=== PATIENT | male | born 1985 | race Caucasian/White ===

== ENCOUNTER 2020-06-25 17:04 | Emergency (ER) | payer SELFPAY ==
[2020-06-25] MEDS ORDERED: HYDROmorphone 1 MG/ML Syringe IVPUSH ONE ×2 (17:50→19:34)
[2020-06-25] MEDS ORDERED: Metoclopramide 10 MG/2 ML SDV IVPUSH ONE (17:51)
[2020-06-25] MEDS ORDERED: Iopamidol 612 MG/ML 50 ML SDV IVPUSH ONE (17:53)
[2020-06-25] MEDS ORDERED: Iopamidol 612 MG/ML 100 ML Bottle IVPUSH ONE (17:53)
[2020-06-25] MEDS ORDERED: Sodium Chloride 0.9% 10 ML Syringe FLUSH ONE (17:53)
--- NOTE | 2020-06-25 17:57 | EDM.PDOC ---
ED HPI GENERAL MEDICAL PROBLEM - General Chief Complaint: Trauma Stated Complaint: BACK INJURY Time Seen by Provider: 06/25/20 17:45 Source of Information: Reports: Patient, RN Notes Reviewed History Limitations: Reports: No Limitations - History of Present Illness INITIAL COMMENTS - FREE TEXT/NARRATIVE: 34-year-old male presents to the ED reportedly having fallen in the workplace from a pole barn at 1300 hrs. today. He apparently fell between 25 and 30 feet to the ground landing primarily feet first and then falling onto his right side. He states he does not believe he hit his head. He has no headache or cervical neck pain at this time. He is alert oriented answers all questions appropriately. Pain is primarily in his thoracolumbar spine and left calcaneus. Patient appreciated that his urine seems to be very dark in color questionable hematuria. Patient states that he was able to ambulate around the job site a little bit after the fall but was unable to get back up on the roof and work. Condition gradually deteriorated with increased pain particular in the lower back. He presents to the ED hunched over at least 30 degrees flexion and is unable to stand fully erect due to pain in his back. Complains of some pain along the right rib cage. Denies headache. Mildly nauseated. Currently pain is 10 out of 10. Onset: Today, Sudden Onset Date: 06/25/20 Onset Time: 13:00 Duration: Hour(s):, Getting Worse (Crease low back pain left heel pain) Location: Reports: Back (Radical lumbar junction lumbar spine. He is unable to stand fully erect.), Lower Extremity, Left (Pain in his left heel.) Quality: Reports: Ache, Throbbing Severity: Severe (10) Improves with: Reports: Rest Worsens with: Reports: Movement Context: Reports: Trauma (Fall between 25 and 30 feet from a pole barn roof onto the ground. He landed feet first.). Denies: Activity, Exercise (Specially trying to walk or take off his pants. He remains flexed at about 30 degrees flexion and is unable to stand fully erect.), Lifting, Sick Contact Associated Symptoms: Reports: Chest Pain, Loss of Appetite, Malaise, Nausea/Vomiting, Shortness of Breath. 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.) Lower Back Pain Score (Numeric/FACES): 10 Left Ankle Pain Score (Numeric/FACES): 6 - Related Data Allergies Allergy/AdvReac Type Severity Reaction Status Date / Time No Known Allergies Allergy Verified 06/25/20 18:11 Home Meds: Home Meds oxyCODONE HCl [Roxicodone] 1 - 2 tab PO Q4H #30 tablet 06/25/20 [Rx] polyethylene glycoL 3350 [MiraLAX] 17 gm PO DAILY #14 packet 06/25/20 [Rx] Past Medical History Genitourinary History: Reports: Renal Calculus (Is a 2 bouts of renal colic.) Social & Family History - Living Situation & Occupation Occupation: Employed Review of Systems - Review of Systems Review Of Systems: See Below Constitutional: Denies: Chills, Diaphoresis, Fever Eyes: Reports: No Symptoms Ears: Reports: No Symptoms Nose: Reports: No Symptoms Mouth/Throat: Reports: No Symptoms Respiratory: Reports: Shortness of Breath (Increased pain right costal margin with deep breathing.). Denies: Wheezing, Pleuritic Chest Pain, Cough, Sputum Cardiovascular: Reports: Chest Pain (Right posterior lateral chest pain worsened by deep breathing.) GI/Abdominal: Reports: No Symptoms, Decreased Appetite. Denies: Abdominal Pain, Bloody Stool, Constipation, Diarrhea, Hematemesis, Nausea, Vomiting Genitourinary: Reports: Other (His fall. Appreciated dark-colored urine since his fall. Questionable hematuria.) Musculoskeletal: Reports: Other (And has had occasional low back pain) Skin: Reports: No Symptoms Neurological: Reports: No Symptoms Psychiatric: Reports: No Symptoms ED EXAM, GENERAL - Physical Exam Exam: See Below Exam Limited By: No Limitations General Appearance: Alert, WD/WN, Moderate Distress, Other (Temperature is 36.6. Heart rate 99 and sinus. Respiratory to 16 with O2 sats of 96% on room air BP 117/87 at the time of admission to the ED.) Eye Exam: Bilateral Eye: Normal Inspection, PERRL Throat/Mouth: Normal Inspection, Normal Lips, Normal Oropharynx, Other Head: Atraumatic, Normocephalic, Other Neck: Normal Inspection (Outward signs of head or facial trauma.), Supple, Non- Tender, Full Range of Motion. No: Carotid Bruit, Lymphadenopathy (L), Lymphadenopathy (R) Respiratory/Chest: No Respiratory Distress, Lungs Clear, Normal Breath Sounds, No Accessory Muscle Use, Other (Diffuse right-sided chest wall tenderness without crepitus or subcutaneous emphysema on palpation. Clinically has bruised ribs.) Cardiovascular: Normal Peripheral Pulses, Regular Rate, Rhythm, No Edema, No Gallop, No Murmur, No Rub Peripheral Pulses: 3+: Carotid (L), Carotid (R), Posterior Tibial (L), Posterior Tibial (R), Dorsalis Pedis (L), Dorsalis Pedis (R) GI/Abdominal: Soft, Non-Tender, No Organomegaly, No Abnormal Bruit, No Mass, Pelvis Stable, Abnormal Bowel Sounds (Decreased bowel sounds) Rectal (Males) Exam: Deferred Back Exam: CVA Tenderness (L), CVA Tenderness (R), Decreased Range of Motion, Vertebral Tenderness (Thoracolumbar spine.), Other (Patient is unable to stand fully erect. He arrives in the ED standing and is flexed at approximately 20 to 30 degrees. This is his position of comfort.) Extremities: Other (No evidence of any injuries to the femurs or hips. Tib- fib's are normal bilaterally to palpation. Right foot is normal to exam. Left foot has tenderness on palpation of the calcaneus and midfoot with slight swelling around the calcaneus appreciated. No bruising or ecchymosis at this time. He denies any injuries to his upper extremities hands wrist elbows or shoulders.) Neurological: Alert, Oriented, CN II-XII Intact, Normal Cognition, No Motor/Sensory Deficits, Other (Patient can stand at the bedside. Patient walked into the ED. He has no lower extremity numbness tingling or paresthesias.) Psychiatric: Other (Patient is a good deal of pain.) Skin Exam: Warm, Dry, Intact, Normal Color, No Rash Course - Vital Signs Last Recorded V/S: Last Vital Signs Temp 36.6 C 06/25/20 17:48 Pulse 93 06/25/20 17:48 Resp 16 06/25/20 17:48 BP 119/84 06/25/20 17:48 Pulse Ox 98 06/25/20 17:48 - Orders/Labs/Meds Orders: Active Orders 24 hr Category Date Time Status Calcaneous Lt [CR] Stat Exams 06/25/20 17:51 Taken Cervical Spine wo Cont [CT] Stat Exams 06/25/20 17:55 Taken Chest Abdomen Pelvis w Cont [CT] Stat Exams 06/25/20 17:53 Taken Foot wo Cont Lt [CT] Stat Exams 06/25/20 18:08 Taken Head wo Cont [CT] Stat Exams 06/25/20 17:52 Taken Lumbar Spine wo Cont [CT] Stat Exams 06/25/20 17:55 Taken Thoracic Spine wo Cont [CT] Stat Exams 06/25/20 17:55 Taken TYPE AND SCREEN [BBK] Stat Lab 06/25/20 17:46 Received URINALYSIS W/MICROSCOPIC [UA W/MICROSCOPIC] [URIN] Stat Lab 06/25/20 17:51 Ordered Sodium Chloride 0.9% [Normal Saline] 1,000 ml Med 06/25/20 18:00 Active IV ASDIRECTED Durable Medical Equipment for Discharge [[facility] [place] 06/25/20 19:34 Ordered Discharge] [COMM] Stat Medication Orders Sodium Chloride (Normal Saline) 1,000 mls @ 150 mls/hr IV ASDIRECTED TD Last Admin: 06/25/20 18:11 Dose: 150 mls/hr Documented by: PALAK Labs: Laboratory Tests 06/25/20 06/25/20 Range/Units 17:46 17:46 WBC 8.86 (4.23-9.07) K/mm3 RBC 4.71 (4.63-6.08) M/mm3 Hgb 14.1 (13.7-17.5) gm/dl Hct 42.0 (40.1-51.0) % MCV 89.2 (79.0-92.2) fl MCH 29.9 (25.7-32.2) pg MCHC 33.6 (32.2-35.5) g/dl RDW Std Deviation 42.4 (35.1-43.9) fL Plt Count 386 H (163-337) K/mm3 MPV 9.9 (9.4-12.3) fl Neut % (Auto) 72.1 H (34.0-67.9) % Lymph % (Auto) 20.1 L (21.8-53.1) % [place] % (Auto) 5.3 (5.3-12.2) % Eos % (Auto) 2.1 (0.8-7.0) Baso % (Auto) 0.2 (0.1-1.2) % Neut # (Auto) 6.38 H (1.78-5.38) K/mm3 Lymph # (Auto) 1.78 (1.32-3.57) K/mm3 [place] # (Auto) 0.47 (0.30-0.82) K/mm3 Eos # (Auto) 0.19 (0.04-0.54) K/mm3 Baso # (Auto) 0.02 (0.01-0.08) K/mm3 Sodium 140 (136-145) mEq/L Potassium 4.3 (3.5-5.1) mEq/L Chloride 104 (98-107) mEq/L Carbon Dioxide 26 (21-32) mEq/L Anion Gap 14.3 (5-15) BUN 22 H (7-18) mg/dL Creatinine 1.0 (0.7-1.3) mg/dL Est Cr Clr Drug Dosing 99.75 mL/min Estimated GFR (MDRD) > 60 (>60) mL/min BUN/Creatinine Ratio 22.0 H (14-18) Glucose 109 H (74-106) mg/dL Calcium 8.9 (8.5-10.1) mg/dL Total Bilirubin 0.4 (0.2-1.0) mg/dL AST 30 (15-37) U/L ALT 46 (16-63) U/L Alkaline Phosphatase 72 (46-116) U/L Total Protein 7.8 (6.4-8.2) g/dl Albumin 4.1 (3.4-5.0) g/dl Globulin 3.7 gm/dL Albumin/Globulin Ratio 1.1 (1-2) Meds: Medications Generic Name Dose Route Start Last Admin Trade Name Freq PRN Reason Stop Dose Admin Sodium Chloride 1,000 mls @ 150 mls/hr 06/25/20 18:00 06/25/20 18:11 Normal Saline IV 150 mls/hr ASDIRECTED TD Administration Discontinued Medications Generic Name Dose Route Start Last Admin Trade Name Freq PRN Reason Stop Dose Admin Hydromorphone HCl 1 mg 10/02/20 17:50 06/25/20 18:11 Dilaudid IVPUSH 06/25/20 17:51 1 mg ONETIME ONE Administration Hydromorphone HCl 1 mg 06/25/20 19:34 06/25/20 19:40 Dilaudid IVPUSH 06/25/20 19:35 1 mg ONETIME ONE Administration Iopamidol 100 ml 06/25/20 17:53 Isovue-300 (61%) IVPUSH 06/25/20 17:54 ONETIME ONE Iopamidol 50 ml 06/25/20 17:53 Isovue-300 (61%) IVPUSH 06/25/20 17:54 ONETIME ONE Metoclopramide HCl 10 mg 06/25/20 17:51 06/25/20 18:11 Reglan IVPUSH 06/25/20 17:52 10 mg ONETIME ONE Administration Sodium Chloride 10 ml 06/25/20 17:53 Saline Flush FLUSH 06/25/20 17:54 ONETIME ONE - Radiology Interpretation Free Text/Narrative:: 34-year-old male presents to the ED for evaluation of trauma secondary to a fall from a pole barn 25 to 30 feet to the ground at approximately 1300 hrs. today. Of note this is approximate 5 hours prior to arrival in the ED. Chief complaint is diffuse pain primarily at the thoracolumbar junction in his back and left foot/calcaneus. Patient reports he thinks he landed feet first and then toppled over to his right side. He definitely had the wind knocked out of him. He does not believe he hurt his head or neck and this is confirmed on examination with no suspicion of closed head injury or cervical spine injury. He is hunched over with 20 to 30 degrees of flexion due to severe pain in the thoracolumbar junction if he tries to stand fully erect. Highly suspect that he is suffered a compression fracture or more to his thoracolumbar spine. There is swelling left midfoot and calcaneus. Plain films of his calcaneus will be obtained. IV to be normal saline at 150 mils per hour. Routine labs obtained. Patient will be given Dilaudid 1 mg IV with Reglan 10 mg IV for acute pain and nausea relief. - Re-Assessments/Exams Free Text/Narrative Re-Assessment/Exam: 06/25/20 18:13 Plain films of the left calcaneus do not reveal any calcaneal fractures. There is a suspect fracture within the midfoot bone particularly the medial cuneiform bone. CT of the Lt foot will be obtained. 06/25/20 18:35 White blood cell count is 8.86. Differential is 72% neutrophils. Hemoglobin 14.1 with hematocrit of 42.0. Platelet count 386,000 slightly elevated. Sodium 140 with potassium of 4.3. Chloride is 104 the bicarb 26. Anion gap is 14.3 BUN is 22 with a creatinine of 1.0. GFR is greater than 60. Glucose slightly elevated at 109. Calcium 8.9 liver function normal total protein 7.8 with an albumin fraction of 4.1. 06/25/20 19:20 CT of the head is reported to be normal. There is no intracranial hemorrhage or mass-effect. There is no skull fractures. No soft tissue evidence of closed head injury. CT cervical spine reveals no fractures. There is normal alignment. No significant disc protrusion. No severe spinal canal stenosis. No significant neuroforaminal narrowing. CT of the chest reveals normal lung dowling with mild bibasilar ectasis. There is no pneumothora x no pulmonary contusion. Great vessels and heart appear to be normal. CT of the abdomen pelvis reveals normal-appearing liver. Gallbladder is distended without any calcified gallstones. Pancreas normal. Spleen normal. Stomach appears normal. The colon contains a fair amount of stool particular right hemicolon and transverse colon at the hepatic flexure. Small bowel appears normal with no signs of bowel obstruction. Both kidneys filled appropriately with contrast. This showed no extravasation of contrast. Ureters feel adequately down to the urinary bladder which also fills normally with contrast on the delayed films. There is no free fluid in the pelvis. CT of the thoracic spine reveals normal alignment without compression fracture or deformities. CT lumbar spine reveals no acute fracture with normal alignment no. No disc protrusion identified no severe spinal canal stenosis no significant neuroforaminal narrowing. He has lost his normal lumbar lordotic curvature presumably due to muscle spasm. CT of the left foot does not reveal any fractures within the foot bones including the calcaneus and the first cuneiform born. Patient is left suffered multiple contusions from his fall today but suffered no bony fractures. 06/25/20 19:35 Patient advised of the findings on CT with no bony fractures. No doubt he is strained all the ligaments in his mid and lower back and sprained his left ankle. There is increased swelling on the lateral aspect of the left ankle at this time. Medial ligaments are intact and normal. Again review of the left tib-fib reveals no clinical evidence of bony fracture. Mauricio wrap applied to the left foot and ankle. He will be nonweightbearing with crutches for the next few days. Due to increased pain will repeat his Dilaudid 1 mg IV. He will be discharged on Roxicodone 5 mg 1 or 2 every 4-6 hours necessary for pain relief x30 tablets. He is advised that he will have increased mid lower back pain and likely cervical neck pain over the next 2 to 3 days. He is to elevate his left foot as much as possible ice pack to the area 1/2-hour out of every 4 hours. He is not going to claim this injury under work-related injury. 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 CT does reveal increased stool throughout the right hemicolon and transverse colon. Patient will be advised to purchase MiraLAX powder and take 17 g once daily to prevent constipation from the Roxicodone tablets. Departure - Departure Time of Disposition: 19:40 Disposition: Home, Self-Care 01 Condition: Fair Clinical Impression: Injury resulting from fall from height, Strain of thoracic spine, Sprain and strain of left ankle Lumbar spine strain Qualifiers: Encounter type: initial encounter Qualified Code(s): S39.012A - Strain of muscle, fascia and tendon of lower back, initial encounter - Discharge Information *PRESCRIPTION DRUG MONITORING PROGRAM REVIEWED*: Not Applicable *COPY OF PRESCRIPTION DRUG MONITORING REPORT IN PATIENT ELE: Not Applicable Prescriptions: polyethylene glycoL 3350 [MiraLAX] 17 gm PO DAILY #14 packet oxyCODONE HCl [Roxicodone] 1 - 2 tab PO Q4H #30 tablet Instructions: Ankle Sprain, Phase I Rehab-SportsMed, Ankle Sprain, [id number], Lumbosacral Strain Referrals: PCP,None [Primary Care Provider] - Forms: ED Department Discharge Additional Instructions: Evaluation in the emergency room tonight after a fall from height of 25 to 30 feet from a pole barn at 1300 hrs. today. It appears that you landed feet first with primary injury to the left foot and ankle. CT of the foot and ankle does not reveal any fractures of the bony structures of the left ankle. There is swelling of the lateral ankle ligament suggesting sprain of the lateral ankle ligaments. Mauricio wrap applied in the ED. Suggest nonweightbearing crutch walking for the next 3 to 6 days. May discontinue crutches when sure able to weight- bear without significant pain. Suggest Mauricio wrap on during the day and off at night but you could leave it on all night tonight. Elevate the left foot as much as possible and apply ice pack to the left lateral ankle for 1/2 part of every 4 hours to reduce pain and swelling over the next 2 days. Second injuries to the lower back called the thoracolumbar spine. CT of the spine does not reveal any fractures in your neck mid back or lower back. You will have increased spasm and muscle pain due to ligament and muscle strain from fall from a height without bony injury. Expect to be much worse over the next 24 to 48 hours and then gradually improve over the next [address] of your chest abdomen pelvis was negative for any broken ribs or injury to the underlying lung or heart. Similarly was no injuries to the internal organs in your abdomen including your kidneys liver and spleen. There is increased stool in the right hemicolon and transverse colon combined with mild constipation. Therefore with use of pain pills for back pain I Roxicodone 5 mg strength 1 or 2 tablets every 4-6 hours necessary for pain relief. These pain pills like to slow the bottom cause constipation. Suggest use of MiraLAX powder 17 g or 1 scoop daily to prevent constipation from occurring until off the pain pills. Likely going to miss the next week to 10 days of work. May continue to use Motrin 60 mg every 6-8 hours as necessary for inflammation and pain relief. Up with personal care physician or walk-in clinic if not markedly improved in 7 to 10 days. Sepsis Event Note (ED) - Evaluation Sepsis Screening Result: No Definite Risk - Focused Exam Vital Signs: Vital Signs Temp Pulse Resp BP Pulse Ox 06/25/20 17:48 36.6 C 93 16 119/84 98 06/25/20 17:41 36.6 C 99 16 117/87 96 - My Orders Last 24 Hours: My Active Orders 06/25/20 17:46 TYPE AND SCREEN [BBK] Stat 06/25/20 17:51 Calcaneous Lt [CR] Stat URINALYSIS W/MICROSCOPIC [UA W/MICROSCOPIC] [URIN] Stat 06/25/20 17:52 Head wo Cont [CT] Stat 06/25/20 17:53 Chest Abdomen Pelvis w Cont [CT] Stat 06/25/20 17:55 Cervical Spine wo Cont [CT] Stat Lumbar Spine wo Cont [CT] Stat Thoracic Spine wo Cont [CT] Stat 06/25/20 18:00 Sodium Chloride 0.9% [Normal Saline] 1,000 ml IV ASDIRECTED 06/25/20 18:08 Foot wo Cont Lt [CT] Stat 06/25/20 19:34 Durable Medical Equipment for Discharge [DME for Discharge] [COMM] Stat - Assessment/Plan Last 24 Hours: My Active Orders 06/25/20 17:46 TYPE AND SCREEN [BBK] Stat 06/25/20 17:51 Calcaneous Lt [CR] Stat URINALYSIS W/MICROSCOPIC [UA W/MICROSCOPIC] [URIN] Stat 06/25/20 17:52 Head wo Cont [CT] Stat 06/25/20 17:53 Chest Abdomen Pelvis w Cont [CT] Stat 06/25/20 17:55 Cervical Spine wo Cont [CT] Stat Lumbar Spine wo Cont [CT] Stat Thoracic Spine wo Cont [CT] Stat 06/25/20 18:00 Sodium Chloride 0.9% [Normal Saline] 1,000 ml IV ASDIRECTED 06/25/20 18:08 Foot wo Cont Lt [CT] Stat 06/25/20 19:34 Durable Medical Equipment for Discharge [DME for Discharge] [COMM] Stat
[2020-06-25] MEDS ORDERED: Sodium Chloride 0.9% 1,000 ML IV SCH (18:00)
== END 2020-06-25 20:09 | disposition home or self-care (01) ==
LOC: JD.ED 17:04
DX: S39.012A Strain of muscle, fascia and tendon of lower back, initial encounter (principal); S29.012A Strain of muscle and tendon of back wall of thorax, initial encounter; S96.912A Strain of unspecified muscle and tendon at ankle and foot level, left foot, initial encounter; S93.402A Sprain of unspecified ligament of left ankle, initial encounter; W17.89XA Other fall from one level to another, initial encounter; Y92.89 Other specified places as the place of occurrence of the external cause; Y99.0 Civilian activity done for income or pay
CPT/HCPCS: 36415; 70450; 71260; 72125; 72128; 72131; 73650; 73700; 74177; 80053; 85025; 86850; 86900; 86901; 96361; 96374; 96375; 96376; 99284; J1170; J2765; J7030

== ENCOUNTER 2020-06-28 11:08 | Emergency (ER) | payer SELFPAY ==
[2020-06-28] MEDS ORDERED: HYDROmorphone 1 MG/ML Syringe IM ONE (11:44)
[2020-06-28] MEDS ORDERED: Orphenadrine 100 MG Tab.ER PO ONE (11:47)
--- NOTE | 2020-06-28 11:59 | EDM.PDOC ---
ED HPI GENERAL MEDICAL PROBLEM - General Chief Complaint: Back Pain or Injury Stated Complaint: BACK PAIN Time Seen by Provider: 06/28/20 11:26 Source of Information: Reports: Patient, Old Records, RN Notes Reviewed History Limitations: Reports: No Limitations - History of Present Illness INITIAL COMMENTS - FREE TEXT/NARRATIVE: Patient is a 34-year-old male who presents to the ED for evaluation of his ongoing back pain. Patient was seen here on June 25 for trauma, he ended up falling off of a bar and that was about 25 or 30 feet off the ground, he landed feet first. He was evaluated by Dr. Pitt, and had multiple CTs done, all of which demonstrated no acute fractures or abnormalities, patient was sent home with some pain medications and MiraLAX and told to follow-up in the clinic if having any further issues, he states he tried to call the clinic and go to the clinic today as he was having increased pain, and he did take all of his medications due to the pain management, so he is subsequently out of pain meds. He was given a 30 count of 5 mg oxycodone tablets. He states that he had to take 2 every 2 hours to achieve adequate pain control along with 3 or 4 tablets of ibuprofen. He states that he is still having generalized pain all over, but he has not had any further traumatic injuries. He states that his is currently out of town, attending their young child in the NICU. So he is been forced to have to do a little bit more work around the house then he should be doing with the amount of pain he is in. He states there is a constant pain, but it does seems to worsen with movement, he states even getting up and off of the toilet is quite a chore. He last took his pain medications roughly 4 hours ago. He is not having any fevers or chills, cough or shortness of breath, nausea/vomiting/diarrhea. He states he is also taking the MiraLAX as prescribed, does not feel constipated. Lower Back Pain Score (Numeric/FACES): 10 - Related Data Allergies Allergy/AdvReac Type Severity Reaction Status Date / Time No Known Allergies Allergy Verified 06/25/20 18:11 Home Meds: Home Meds Naproxen [Naprosyn] 500 mg PO Q12HR #14 tab 06/28/20 [Rx] Orphenadrine [Norflex] 100 mg PO BID PRN #20 tab 06/28/20 [Rx] oxyCODONE HCl [Oxycodone HCL] 1 tab PO Q6H #30 tablet 06/28/20 [Rx] polyethylene glycoL 3350 [Miralax] 17 gram PO DAILY 06/28/20 [History] Past Medical History Genitourinary History: Reports: Renal Calculus - Past Surgical History Male Surgical History: Reports: Kidney Stone Extraction, Renal Calculus Social & Family History - Living Situation & Occupation Occupation: Employed ED ROS GENERAL - Review of Systems Review Of Systems: Comprehensive ROS is negative, except as noted in HPI. ED EXAM,LOWER BACK PAIN/INJURY - Physical Exam Exam: See Below Exam Limited By: No Limitations General Appearance: Alert, WD/WN, No Apparent Distress Respiratory/Chest: No Respiratory Distress, Lungs Clear, Normal Breath Sounds, No Accessory Muscle Use, Chest Non-Tender Cardiovascular: Normal Peripheral Pulses, Regular Rate, Rhythm, No Murmur GI/Abdominal: Normal Bowel Sounds, Soft, Non-Tender, No Distention, No Mass Back Exam: Normal Inspection, Muscle Spasm (diffuse throughout spine) Extremities: Normal Inspection, Normal Capillary Refill Neurological: Alert, Normal Mood/Affect, Normal Dorsiflexion, Normal Plantar Flexion, No Motor/Sensory Deficits Psychiatric: Normal Affect, Normal Mood Skin Exam: Warm, Dry, Intact, Normal Color, No Rash Course - Vital Signs Last Recorded V/S: Last Vital Signs Temp 97.6 F 06/28/20 11:27 Pulse 64 06/28/20 11:27 Resp 20 06/28/20 11:27 BP 141/87 H 06/28/20 11:27 Pulse Ox 99 06/28/20 11:27 - Orders/Labs/Meds Meds: Medications Discontinued Medications Generic Name Dose Route Start Last Admin Trade Name Freq PRN Reason Stop Dose Admin Hydromorphone HCl 1 mg 06/28/20 11:44 06/28/20 11:53 Dilaudid IM 06/28/20 11:45 1 mg ONETIME ONE Administration Orphenadrine Citrate 100 mg 06/28/20 11:47 06/28/20 11:53 Norflex PO 06/28/20 11:48 100 mg ONETIME ONE Administration - Re-Assessments/Exams Free Text/Narrative Re-Assessment/Exam: 06/28/20 11:59 Patient presents to the ED for ongoing back pain. We will give him 1 mg IM Dilaudid at this time for pain management, and 100 mg p.o. Norflex, plan is to send him home with Naprosyn tablets, Norflex tablets, and 10 mg oxycodone tablets for further pain relief. I told him he is likely going to feel stiff and sore for the next couple days, and he realizes this at this time. 06/28/20 12:37 Patient notes he is feeling better, and is ready to go home at this time. I will discharge home with the above plan. Departure - Departure Time of Disposition: 12:38 Disposition: Home, Self-Care 01 Condition: Good Clinical Impression: Muscle spasm of back Low back pain Qualifiers: Chronicity: acute Back pain laterality: bilateral Sciatica presence: without sciatica Qualified Code(s): M54.5 - Low back pain - Discharge Information *PRESCRIPTION DRUG MONITORING PROGRAM REVIEWED*: Yes *COPY OF PRESCRIPTION DRUG MONITORING REPORT IN PATIENT ELE: No Prescriptions: Naproxen [Naprosyn] 500 mg PO Q12HR #14 tab Orphenadrine [Norflex] 100 mg PO BID PRN #20 tab PRN Reason: Spasms oxyCODONE HCl [Oxycodone HCL] 1 tab PO Q6H #30 tablet Instructions: Pain Medicine Instructions, [id number] Forms: ED Department Discharge Additional Instructions: You have been evaluated in the ED for your low back pain. Please use iceheat as tolerated to the affected area. You may take Tylenol (acetaminophen) 500 mg q6 hrs for pain relief. Please do so until you have a tolerable level of pain with activity. Do not exceed 4000mg Tylenol (acetaminophen) in a 24 hour time period. You were given a prescription for a strong pain medication, Oxycodone 10 mg, please take 1 tab every 6 hours as needed for pain not relieved by Tylenol or ibuprofen alone. Please note this medication does contain Tylenol in it, so do not take more than 4000 mg in a 24-hour time span. These medications can be addictive, so please take as few as possible to achieve adequate pain control. These meds can also be quite constipating, recommend that you increase your oral fluid intake and take a stool softener like MiraLAX while taking these medications. Do not drive while taking this medication. You were given a prescription for Naprosyn, 500 mg, please take 1 tablet every 12 hours for further pain relief. You were also given a prescription for Norflex, a muscle relaxer, please use 1 tab every 12 hours as needed for further pain relief. Please return to ED if your symptoms should change or worsen. Sepsis Event Note (ED) - Evaluation Sepsis Screening Result: No Definite Risk - Focused Exam Vital Signs: Vital Signs Temp Pulse Resp BP Pulse Ox 06/28/20 11:27 97.6 F 64 20 141/87 H 99
== END 2020-06-28 13:20 | disposition home or self-care (01) ==
LOC: SUPCPDRO 11:08 → JD.ED 11:08
DX: M62.830 Muscle spasm of back (principal)
CPT/HCPCS: 96372; 99283; A9270; J1170

== ENCOUNTER 2020-07-16 00:04 | Emergency (ER) | payer SELFPAY ==
--- NOTE | 2020-07-16 00:13 | EDM.PDOC ---
ED HPI GENERAL MEDICAL PROBLEM - General Chief Complaint: Trauma Stated Complaint: FELL OFF STEPS INJURING BACK/HEAD/RIBS Time Seen by Provider: 07/16/20 00:12 Source of Information: Reports: Patient History Limitations: Reports: No Limitations - History of Present Illness INITIAL COMMENTS - FREE TEXT/NARRATIVE: 34-year-old male reports to the ED per private vehicle from his home in [facility]. History suggest that he was out walking his dogs and upon returning home slipped on the icy top landing of his stairs outside his home. He fell to the side and backwards striking his posterior lateral right ribs on a metal railing and then fall to the concrete landing striking the back of his head and neck on the upper stair in mid back and lower back on the lower stairs. Injury did not the wind out of him. He does not believe he lost consciousness. Most of his pain at present in his left posterior lateral ribs and upper neck and back. Of note this patient was seen on June 25 of this month after reportedly falling 25 to 30 feet from the roof of a pole barn landing on his feet and was seen through the ED at that time 5 hours post injury. He did have CTs of his cervical, thoracic, lumbar spine at that time as well as CT of his left foot and ankle to rule out a calcaneal fracture. No fractures were identified within the spine at that time. Patient states that he has been able to weight-bear on the left foot over the last week. Still has significant low back pain and mid back pain. He had a friend bring him into the ER [facility] for evaluation Onset Date: 07/15/20 Onset Time: 22:30 Duration: Hour(s):, Getting Worse (Injury occurred approximately 2 hours before arrival in the ED.) Location: Reports: Chest (Cervical, thoracic and lumbar spine pain. Right posterior lateral chest pain with inspiration.), Back. Denies: Upper Extremity, Left, Upper Extremity, Right, Lower Extremity, Left, Lower Extremity, Right Quality: Reports: Ache, Other (Pain is sharp and stabbing left posterior lateral ribs with inspiration) Severity: Moderate (Noted 10) Improves with: Reports: Rest (And shallow breathing.) Worsens with: Reports: Movement Context: Reports: Trauma (Reportedly slipped and fell on icy concrete stairs at home and done [facility]. He was out walking his dogs.). Denies: Activity (And/or deep breathing or cough.), Exercise, Lifting, Sick Contact Associated Symptoms: Reports: Chest Pain (Right posterior lateral chest pain), Malaise, Shortness of Breath. Denies: Confusion, Cough ( with inspiration.), cough w sputum, Diaphoresis, Fever/Chills, Headaches, Loss of Appetite, Nausea/Vomiting, Rash, Seizure, Syncope Treatments [employer] MEMBER: Reports: Other (see below) (None.) Back Pain Score (Numeric/FACES): 9 - Related Data Allergies Allergy/AdvReac Type Severity Reaction Status Date / Time No Known Allergies Allergy Verified 07/16/20 00:21 Home Meds: Home Meds Naproxen [Naprosyn] 500 mg PO Q12HR #14 tab 06/28/20 [Rx] Orphenadrine [Norflex] 100 mg PO BID PRN #20 tab 06/28/20 [Rx] oxyCODONE HCl [Oxycodone HCL] 1 tab PO Q6H #30 tablet 06/28/20 [Rx] polyethylene glycoL 3350 [Miralax] 17 gram PO DAILY 06/28/20 [History] Naproxen Sodium 550 mg PO Q12H #30 tablet 07/16/20 [Rx] oxyCODONE HCl [Roxicodone] 5 mg PO Q4H PRN #36 tablet 07/16/20 [Rx] Past Medical History - Past Health History Medical/Surgical History: Denies Medical/Surgical History Genitourinary History: Reports: Renal Calculus - Past Surgical History Male Surgical History: Reports: Kidney Stone Extraction, Renal Calculus Social & Family History - Caffeine Use Caffeine Use: Reports: None - Living Situation & Occupation Occupation: Employed Review of Systems - Review of Systems Review Of Systems: See Below Constitutional: Denies: Chills, Diaphoresis, Fever, Weakness, Other Eyes: Reports: No Symptoms Ears: Reports: No Symptoms Nose: Reports: No Symptoms Mouth/Throat: Reports: No Symptoms Respiratory: Reports: Shortness of Breath, Pleuritic Chest Pain (Right posterior lateral chest wall pain with inspiration.). Denies: Wheezing, Cough, Sputum, Hemoptysis Cardiovascular: Reports: No Symptoms GI/Abdominal: Reports: No Symptoms Genitourinary: Reports: No Symptoms Musculoskeletal: Reports: Neck Pain, Back Pain (Pre-existing injury from 3 weeks ago when he fell from a pole barn and landed on his feet. No fractures were identified on CT scans of the neck thoracic or lumbar spine at that time.), Other (Still has some pain in his right ankle with walking.) Skin: Reports: No Symptoms Neurological: Reports: No Symptoms Psychiatric: Reports: No Symptoms ED EXAM, GENERAL - Physical Exam Exam: See Below Exam Limited By: No Limitations General Appearance: Alert, WD/WN, Moderate Distress, Other (Splinting respirations. Temperature is 36.2. Heart rate is 84 and sinus respiratory 16 sats are 95% room air BP 152/78.) Eye Exam: Bilateral Eye: Normal Inspection, PERRL Ears: Normal External Exam Throat/Mouth: Normal Inspection, Normal Lips, Normal Oropharynx, Other (No injuries to the tongue or dentition.) Head: Other (Appears to have some pain and swelling right occipital scalp on examination. Hematoma appears evident. No open wounds or bleeding.) Neck: Normal Inspection, Tender Lateral, Tender Midline (Line particularly at the base of the skull with no offset of any of the cervical spine is.). No: Supple, Lymphadenopathy (L), Lymphadenopathy (R), Thyromegaly Respiratory/Chest: Lungs Clear, Normal Breath Sounds, No Accessory Muscle Use, Splinting (Mild splinting respirations on the right side.), Other (No palpable crepitus or subcutaneous emphysema on palpation of ribs. Pain to palpation over posterior lateral right ribs 6-9.). No: Rales, Rhonchi, Wheezing Cardiovascular: Normal Peripheral Pulses, Regular Rate, Rhythm, No Edema, No Gallop, No Murmur, No Rub Peripheral Pulses: 3+: Carotid (L), Carotid (R) GI/Abdominal: Normal Bowel Sounds, Soft, Non-Tender, No Organomegaly, No Mass, Pelvis Stable, Other (No evidence of any intra-abdominal injury. No injury to the pelvis.) Back Exam: Vertebral Tenderness (Headedness to palpation mid thoracic spine as well as mid and upper lumbar spine with normal alignment of the spinous processes. No abrasions contusions appreciated on the thoracic or lumbar spine.). No: CVA Tenderness (L), CVA Tenderness (R) Extremities: Other (No apparent injuries to his elbows or wrists on examination. He is able to lift both arms above his head. Still has some pain on firm compression of his right ankle ligaments but no palpable evidence clinically of injury to the knees ankles feet or hips.) Neurological: Alert, Oriented, CN II-XII Intact, Normal Cognition Psychiatric: Anxious, Other Skin Exam: Warm (Appears to be in a moderate degree of pain.), Dry, Intact, Normal Color, No Rash Course - Vital Signs Last Recorded V/S: Last Vital Signs Temp 36.2 C 07/16/20 00:22 Pulse 74 07/16/20 00:22 Resp 16 07/16/20 00:22 BP 136/78 07/16/20 00:22 Pulse Ox 95 07/16/20 00:22 - Orders/Labs/Meds Orders: Active Orders 24 hr Category Date Time Status Cervical Spine wo Cont [CT] Stat Exams 07/16/20 00:37 Taken Chest wo Cont [CT] Stat Exams 07/16/20 00:38 Taken Head wo Cont [CT] Stat Exams 07/16/20 00:36 Taken Lumbar Spine wo Cont [CT] Stat Exams 07/16/20 00:37 Taken Thoracic Spine wo Cont [CT] Stat Exams 07/16/20 00:37 Taken Peripheral IV Insertion Adult [OM.PC] Stat Oth 07/16/20 00:35 Ordered Meds: Medications Discontinued Medications Generic Name Dose Route Start Last Admin Trade Name Robinson PRN Reason Stop Dose Admin Hydromorphone HCl 1 mg 07/16/20 00:35 07/16/20 00:44 Dilaudid IVPUSH 07/16/20 00:36 1 mg ONETIME ONE Administration Hydromorphone HCl 1 mg 07/16/20 01:47 07/16/20 01:53 Dilaudid IVPUSH 07/16/20 01:48 1 mg ONETIME ONE Administration Metoclopramide HCl 10 mg 07/16/20 00:35 07/16/20 00:44 Reglan IVPUSH 07/16/20 00:36 10 mg ONETIME ONE Administration Sodium Chloride 10 ml 07/16/20 00:35 07/16/20 00:44 Saline Flush FLUSH 10 ml ASDIRECTED PRN Administration Keep Vein Open - Radiology Interpretation Free Text/Narrative:: 34-year-old male presents to the ED per private vehicle from his home in [facility]. Reportedly he was out walking his dogs and upon reentering his home slipped on icy concrete stairs entering his home resulting in a fall. He states that he struck the back of his head and neck on the upper stair his mid and lower back on the mid concrete stairs. Struck his right posterior lateral chest on a metal handrail on the stairway. No loss of consciousness. He is able to provide a very useful history. Injury occurred approximately 2 hours before coming to the ED. Pain on palpation of thoracic and lumbar spine in the midline. He complains of pain at the base of his skull in the cervical spine. Minimal hematoma right occipital scalp. No open wounds or abrasions or lacerations. Pain on palpation of posterior lateral right ribs 6-9 without subcutaneous emphysema or palpable crepitus. Also no abrasions or contusions to the skin but he states he was well dressed of course due to the snowy conditions outside.. New injuries to his lower extremities or hips. Plan saline lock. Dilaudid 1 mg IV with Reglan 10 mg IV for acute pain relief. He will be for CT head, cervical, thoracic, lumbar spine as well as chest. - Re-Assessments/Exams Free Text/Narrative Re-Assessment/Exam: 07/16/20 01:38 CT scan of the head and brain has been completed without contrast. He has no intracranial hemorrhage or mass-effect. There are no skull fractures. There is evidence of a hematoma will right occipital scalp with there is surrounding swelling. CT of the cervical spine reveals no fractures. He has lost his normal which are of the cervical spine. No malalignment appreciated. CT of the thoracic spine also reveals no compression fractures or fractures of the spinous processes. There is mild degenerative changes throughout the mid thoracic spine. Facet joints are in anatomic alignment. There is no significant thoracic spine discs. CT lumbar spine also with without fracture or displacement of any of the transverse processes. There is a small broad-based disc bulges at the L3-L4 level resulting in mild bilateral neuroforaminal narrowing. No severe spinal canal stenosis appreciated. Similarly at the L4-L5 level there is a small broad-based disc bulge present resulting in mild bilateral neuroforaminal narrowing as well. CT of the chest revealed no pulmonary contusions pneumothorax or pleural effusions. No rib fractures were identified or subcutaneous air. Visualized portions of the upper abdominal organs i.e. liver spleen and kidneys are normal. Patient appears to have suffered multiple contusions from fall on concrete stairs with significant hematoma of the left occipital scalp. Possible concussion as well. Patient still having a good deal of pain particular in his mid and lower back. Repeat Dilaudid 1 mg IV at this time 07/16/20 01:56 patient will be discharged home. Ice pack to sore areas for 1/2- hour out of every 4 hours for the next 2 days. Prescription written for Roxicodone 5 mg tablets to be taken 1 or 2 every 4-6 hours necessary for pain relief. 36 tablets were prescribed. Advised follow-up with his primary care physician if any further problems occur. Departure - Departure Time of Disposition: 01:59 Disposition: Home, Self-Care 01 Condition: Fair Clinical Impression: Traumatic injury of head with hematoma of scalp, Contusion of right back wall of thorax, initial encounter Closed head injury Qualifiers: Encounter type: initial encounter Qualified Code(s): S09.90XA - Unspecified injury of head, initial encounter Contusion of lower back Qualifiers: Encounter type: initial encounter Qualified Code(s): S30.0XXA - Contusion of lower back and pelvis, initial encounter Contusion of back Qualifiers: Encounter type: initial encounter Laterality: right Qualified Code(s): S20.221A - Contusion of right back wall of thorax, initial encounter Contusion of chest wall Qualifiers: Encounter type: initial encounter Laterality: right Qualified Code(s): S20.211A - Contusion of right front wall of thorax, initial encounter - Discharge Information *PRESCRIPTION DRUG MONITORING PROGRAM REVIEWED*: No *COPY OF PRESCRIPTION DRUG MONITORING REPORT IN PATIENT ELE: No Prescriptions: Naproxen Sodium 550 mg PO Q12H #30 tablet oxyCODONE HCl [Roxicodone] 5 mg PO Q4H PRN #36 tablet PRN Reason: Back pain Instructions: Head Injury, Adult, [id number] Referrals: PCP,None [Primary Care Provider] - Forms: ED Department Discharge Additional Instructions: And in the emergency room tonight in regards to injury sustained from a fall outside her home tonight on icy concrete stairs. Examination reveals a palpable hematoma to the right occipital scalp which is confirmed on CT scan. No fractures of the skull were identified and no intracranial bleeding or mass- effect identified. Associated injury to the cervical spine occurs when the head hits the hard surface. CT scan reveals no fractures in the neck or malalignment due to torn ligaments. Injuries also occurred to the mid back bones called the thoracic spine as well as the lower back or lumbar spine on examination. These areas were recovering from injuries sustained from a fall from a height 3 weeks ago. Once again no fractures were identified within the thoracic or lumbar spine. CT of the chest wall also reveals no broken ribs on the right posterior lateral chest wall where you are sore. No injuries to the underlying lung heart or great vessels. No injuries to the liver or spleen or kidneys identified identified on CT exam either. It is impossible to tell whether or not you have suffered a concussion which means a bruise brain from the fall. This is certainly a possibility. This causes symptoms such as visual changes, sensitive to light. Feeling of being off balance for up to a week or 10 days. Treatment is time to heal. Ice pack to sore areas 1/2-hour out of every 4 hours for the next 2 days. After this may apply heat to sore areas. Pain medication is Roxicodone tablets 5 mg strength 1 or 2 every 4-6 hours necessary for pain relief. Continue stool softener such as MiraLAX powder 17 g or 1 scoop daily to prevent constipation from the pain pills. You can continue note naproxen 2 tablets every 8 hours to reduce pain and inflammation as well. Expect at least 7 to 10 days to recover from these injuries. Follow-up with personal care physician if any other problems develop. Sepsis Event Note (ED) - Focused Exam Vital Signs: Vital Signs Temp Pulse Resp BP Pulse Ox 07/16/20 00:22 36.2 C 74 16 136/78 95 07/16/20 00:14 36.2 C 84 16 152/78 H 95 - My Orders Last 24 Hours: My Active Orders 07/16/20 00:35 Peripheral IV Insertion Adult [OM.PC] Stat 07/16/20 00:36 Head wo Cont [CT] Stat 07/16/20 00:37 Cervical Spine wo Cont [CT] Stat Lumbar Spine wo Cont [CT] Stat Thoracic Spine wo Cont [CT] Stat 07/16/20 00:38 Chest wo Cont [CT] Stat - Assessment/Plan Last 24 Hours: My Active Orders 07/16/20 00:35 Peripheral IV Insertion Adult [OM.PC] Stat 07/16/20 00:36 Head wo Cont [CT] Stat 07/16/20 00:37 Cervical Spine wo Cont [CT] Stat Lumbar Spine wo Cont [CT] Stat Thoracic Spine wo Cont [CT] Stat 07/16/20 00:38 Chest wo Cont [CT] Stat
[2020-07-16] MEDS ORDERED: HYDROmorphone 1 MG/ML Syringe IVPUSH ONE ×2 (00:35→01:47)
[2020-07-16] MEDS ORDERED: Sodium Chloride 0.9% 10 ML Syringe FLUSH PRN (00:35)
[2020-07-16] MEDS ORDERED: Metoclopramide 10 MG/2 ML SDV IVPUSH ONE (00:35)
== END 2020-07-16 02:16 | disposition home or self-care (01) ==
LOC: JD.ED 00:04
DX: S00.03XA Contusion of scalp, initial encounter (principal); S20.211A Contusion of right front wall of thorax, initial encounter; S20.221A Contusion of right back wall of thorax, initial encounter; S30.0XXA Contusion of lower back and pelvis, initial encounter; W00.1XXA Fall from stairs and steps due to ice and snow, initial encounter; Y93.K1 Activity, walking an animal; Y92.008 Other place in unspecified non-institutional (private) residence as the place of occurrence of the external cause
CPT/HCPCS: 70450; 71250; 72125; 72128; 72131; 96374; 96375; 96376; 99283; J1170; J2765; 99284

== ENCOUNTER 2020-08-06 13:29 | Emergency (ER) | payer SELFPAY ==
[2020-08-06] MEDS ORDERED: Sodium Chloride 0.9% 10 ML Syringe FLUSH PRN ×2 (13:48→14:00)
[2020-08-06] MEDS ORDERED: HYDROmorphone 1 MG/ML Syringe IVPUSH ONE (13:54)
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
[2020-08-06] MEDS ORDERED: Iopamidol 612 MG/ML 100 ML Bottle IVPUSH ONE (14:00)
[2020-08-06] MEDS ORDERED: Lactated Ringers 1,000 ML IV SCH (14:00)
[2020-08-06] MEDS ORDERED: HYDROmorphone 0.5 MG/0.5 ML Syringe IVPUSH ONE (15:58)
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
== END 2020-08-06 16:52 | disposition home or self-care (01) ==
LOC: JD.ED 13:29
DX: S09.90XA Unspecified injury of head, initial encounter (principal); S16.1XXA Strain of muscle, fascia and tendon at neck level, initial encounter; S20.221A Contusion of right back wall of thorax, initial encounter; M25.552 Pain in left hip; V86.56XA Driver of dirt bike or motor/cross bike injured in nontraffic accident, initial encounter
CPT/HCPCS: 36415; 70450; 71260; 72125; 72128; 74177; 80053; 80306; 80307; 81001; 83690; 85025; 96374; 96376; 99284; J1170; J7120; Q9967

== ENCOUNTER 2020-11-09 15:39 | Emergency (ER) | payer SELFPAY ==
[2020-11-09] MEDS ORDERED: Sodium Chloride 0.9% 10 ML Syringe FLUSH PRN (15:57)
[2020-11-09] MEDS ORDERED: cefTRIAXone 2 GM in Sodium Chloride 0.9% 100 ML IV ONE (15:57)
[2020-11-09] MEDS ORDERED: Doxycycline 100 MG Cap PO ONE (15:58)
--- NOTE | 2020-11-09 15:58 | EDM.PDOC ---
ED HPI GENERAL MEDICAL PROBLEM - General Chief Complaint: Skin Complaint Stated Complaint: LT ARM SWOLLEN Time Seen by Provider: 11/09/20 15:41 Source of Information: Reports: Patient History Limitations: Reports: No Limitations - History of Present Illness INITIAL COMMENTS - FREE TEXT/NARRATIVE: 35-year-old male attends the ED with a painful slightly reddened left arm. 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 He states there is lots of banana spiders but these are not known to be toxic. He states there was certainly lots of thorns or stickers on the plants in the homes he was working at outside. Initially the wounds seem to itch fairly badly he was pretty sure that he was stung by something. Subsequently there is become much more red painful and swollen over the last 2 days. He states he feels a little bit fatigued but no nausea vomiting. He has eaten breakfast and supper today. No noted fever. States pain is in the left antecubital fossa radiates up the arm towards the shoulder. He reports the area is very painful to touch. Note the lesion is in the antecubital fossa but he denies any purposeful needlestick in this area does not inject drugs. I do not see any other track ruiz either. Pain is worse with full extension and flexion at the elbow. Onset: Gradual Onset Date: 11/06/20 Duration: Day(s):, Getting Worse Location: Reports: Upper Extremity, Left Quality: Reports: Ache, Throbbing (Left antecubital fossa of the arm and rating up the arm towards the shoulder.) Severity: Moderate Improves with: Reports: Rest Worsens with: Reports: Movement Context: Reports: Other (Known if he was poked by some form of vegetation while he was working down in [place].). Denies: Activity, Exercise (Action extension of the elbow causes pain), Lifting, Sick Contact, Trauma Associated Symptoms: Reports: No Other Symptoms, Rash. 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) Left Arm Pain Score (Numeric/FACES): 8 - Related Data Allergies Allergy/AdvReac Type Severity Reaction Status Date / Time No Known Allergies Allergy Verified 11/09/20 15:51 Home Meds: Home Meds Doxycycline [Vibra-Tabs] 100 mg PO Q12HR #24 tab 11/09/20 [Rx] oxyCODONE HCl [Roxicodone] 5 mg PO Q4H PRN #16 tablet 11/09/20 [Rx] Past Medical History - Past Health History Medical/Surgical History: Denies Medical/Surgical History Genitourinary History: Reports: Renal Calculus - Past Surgical History Male Surgical History: Reports: Kidney Stone Extraction, Renal Calculus Social & Family History - Tobacco Use Tobacco Use Status *Q: Current Every Day Tobacco User Years of Tobacco use: 1 Packs/Tins Daily: 0.5 - Caffeine Use Caffeine Use: Reports: Coffee, Energy Drinks, Soda, Tea - Recreational Drug Use Recreational Drug Use: No - Living Situation & Occupation Living situation: Reports: with Significant Other Occupation: Unemployed Social History Comment: Has a 6-month-old son at home that he is caring for her at present. ED ROS GENERAL - Review of Systems Review Of Systems: See Below Constitutional: Reports: Fatigue. Denies: Fever, Chills, Malaise, Weakness, Decreased Appetite, Weight Loss HEENT: Reports: No Symptoms Respiratory: Reports: No Symptoms Cardiovascular: Reports: No Symptoms Endocrine: Reports: No Symptoms GI/Abdominal: Reports: No Symptoms : Reports: No Symptoms Musculoskeletal: Reports: No Symptoms Skin: Reports: No Symptoms Neurological: Reports: No Symptoms Psychiatric: Reports: No Symptoms Hematologic/Lymphatic: Reports: No Symptoms Immunologic: Reports: No Symptoms ED EXAM, SKIN/RASH Exam: See Below Exam Limited By: No Limitations General Appearance: Alert, WD/WN, No Apparent Distress, Mild Distress, Other (Appears tired.) Eye Exam: Bilateral Eye: Normal Inspection, PERRL Neck: Normal Inspection, Supple, Non-Tender, Full Range of Motion. No: Lymphadenopathy (L), Lymphadenopathy (R) Respiratory/Chest: No Respiratory Distress, Lungs Clear, Normal Breath Sounds, No Accessory Muscle Use Cardiovascular: Normal Peripheral Pulses, Regular Rate, Rhythm, No Edema, No Gallop, No Murmur, No Rub Peripheral Pulses: 3+: Carotid (L), Carotid (R), Posterior Tibial (L), Posterior Tibial (R), Dorsalis Pedis (L), Dorsalis Pedis (R) GI/Abdominal: Normal Bowel Sounds, Soft, Non-Tender, No Organomegaly, No Abnormal Bruit, No Mass, Pelvis Stable Extremities: Other (Patient has a patch of erythema across the antecubital fossa of his left arm. This is warm to palpation and tender to palpation. There is a area of erythema extending on the volar lateral aspect of the proximal forearm measuring about 6 inches x 4 inches. The tenderness travels up his arm which is heavily tattooed. I cannot palpate any increased warmth or significant tenderness in the distribution of the biceps or volar aspect of his arm. There was no increased axillary adenopathy.) Psychiatric: Normal Affect, Normal Mood Skin: Warm, Dry, Erythema (Cellulitis developing left antecubital fossa), Increased Warmth ( and proximal forearm. Left forearm) Course - Vital Signs Last Recorded V/S: Last Vital Signs Temp 36.8 C 11/09/20 15:46 Pulse 74 11/09/20 15:46 Resp 18 11/09/20 15:46 BP 133/81 11/09/20 15:46 Pulse Ox 100 11/09/20 15:46 - Orders/Labs/Meds Orders: Active Orders 24 hr Category Date Time Status Peripheral IV Care [RC] . DIRECTED Care 11/09/20 15:57 Active Ketorolac [Toradol] Med 11/09/20 16:15 Active 30 mg IVPUSH ONETIME Sodium Chloride 0.9% [Saline Flush] Med 11/09/20 15:57 Active 10 ml FLUSH ASDIRECTED PRN Peripheral IV Insertion Adult [OM.PC] Stat Oth 11/09/20 15:57 Ordered Medication Orders Ketorolac Tromethamine (Toradol) 30 mg IVPUSH ONETIME TD Sodium Chloride (Saline Flush) 10 ml FLUSH ASDIRECTED PRN PRN Reason: Keep Vein Open Last Admin: 11/09/20 16:05 Dose: 10 ml Documented by: JOSH Labs: Laboratory Tests 11/09/20 11/09/20 11/09/20 Range/Units 16:00 16:00 16:00 WBC 11.15 H (4.23-9.07) K/mm3 RBC 4.80 (4.63-6.08) M/mm3 Hgb 14.1 (13.7-17.5) gm/dl Hct 42.0 (40.1-51.0) % MCV 87.5 D (79.0-92.2) fl MCH 29.4 (25.7-32.2) pg MCHC 33.6 (32.2-35.5) g/dl RDW Std Deviation 41.2 (35.1-43.9) fL Plt Count 267 (163-337) K/mm3 MPV 9.5 (9.4-12.3) fl Neut % (Auto) 80.4 H (34.0-67.9) % Lymph % (Auto) 13.5 L (21.8-53.1) % [place] % (Auto) 5.2 L (5.3-12.2) % Eos % (Auto) 0.6 L (0.8-7.0) Baso % (Auto) 0.2 (0.1-1.2) % Neut # (Auto) 8.96 H (1.78-5.38) K/mm3 Lymph # (Auto) 1.51 (1.32-3.57) K/mm3 [place] # (Auto) 0.58 (0.30-0.82) K/mm3 Eos # (Auto) 0.07 (0.04-0.54) K/mm3 Baso # (Auto) 0.02 (0.01-0.08) K/mm3 Creatine Kinase 88 (39-308) U/L C-Reactive Protein 4.3 H* (<1.0) mg/dL Meds: Medications Generic Name Dose Route Start Last Admin Trade Name Freq PRN Reason Stop Dose Admin Ketorolac Tromethamine 30 mg 11/09/20 16:15 Toradol IVPUSH ONETIME TD Sodium Chloride 10 ml 11/09/20 15:57 11/09/20 16:05 Saline Flush FLUSH 10 ml ASDIRECTED PRN Administration Keep Vein Open Discontinued Medications Generic Name Dose Route Start Last Admin Trade Name Freq PRN Reason Stop Dose Admin Doxycycline Hyclate 200 mg 11/09/20 15:58 11/09/20 16:04 Vibramycin PO 11/09/20 15:59 200 mg ONETIME ONE Administration Hydromorphone HCl 0.5 mg 11/09/20 16:41 11/09/20 16:51 Dilaudid IVPUSH 11/09/20 16:42 0.5 mg ONETIME ONE Administration Ceftriaxone Sodium 2 gm/ 100 mls @ 200 mls/hr 11/09/20 15:57 11/09/20 16:04 Sodium Chloride IV 11/09/20 16:26 200 mls/hr ONETIME ONE Administration Ketorolac Tromethamine 30 mg 11/09/20 16:12 11/09/20 16:23 Toradol IVPUSH 11/09/20 16:13 30 mg ONETIME ONE Administration - Radiology Interpretation Free Text/Narrative:: 35-year-old male presents to the ED with painful swollen erythematous area in the antecubital fossa of his left arm. He is not exactly sure if he was poked by some form of vegetation while he was working in [place] a week ago. He states there are several yellow or banana spiders there that may sting but they do not leave any venom in the wound. He states initially the lesion did itch and he thought that he was stung by something but he never appreciated what it was. Subsequently the itching went away and has been replaced with constant throbbing pain and much worse over the last 12 to 24 hours. It is now radiating up his left arm and in the proximal aspect of his left forearm. He shows no systemic signs of illness such as fever chills nausea or vomiting. Definite inflammation in the antecubital fossa on exam.. Tenderness throughout the biceps musculature on exam but no increased erythema up the arm. Pain out of proportion to clinical findings. Therefore will have labs drawn to include a total CPK CRP and CBC. Patient will be given Rocephin 2 g intravenously and doxycycline 200 mg per ora. - Re-Assessments/Exams Free Text/Narrative Re-Assessment/Exam: 11/09/20 16:13 nurse approached me indicating that the patient is requesting analgesia. I do not see that it is a severe infection and therefore I do have some concerns about narcotic seeking behavior. Plan will be to give him Toradol 30 mg IV at this time. 11/09/20 16:46 I spoke with remotely at length about past history of narcotic behavior and it seems like he has taken very little narcotics in the past. He prefers to stay low-dose. Therefore I will discharge him on doxycycline 100 mg twice daily for the next 12 days and Percocet tabs 5 /12 tablets provided 325 mg 1 every 4-6 hours necessary for pain relief. Labs did return with an elevated white count at 11.15 with a left shift of 80.4% neutrophils. Hemoglobin is 14.1 with hematocrit of 42.0 platelet count 267,000. Total CPK is 80. CRP is elevated at 4.3. She will be discharged home on doxycycline 100 mg twice daily for the next 12 days. I also gave him Roxicodone tablets 5 mg strength 1 or 2 every 4-6 hours necessary for pain relief x12 tablets. He is to use this with Motrin 600 mg every 6 hours as needed. Is to return to medical care if not markedly improved in 72 hours time. Departure - Departure Time of Disposition: 16:47 Disposition: Home, Self-Care 01 Condition: Fair Clinical Impression: Cellulitis of left upper extremity - Discharge Information *PRESCRIPTION DRUG MONITORING PROGRAM REVIEWED*: No *COPY OF PRESCRIPTION DRUG MONITORING REPORT IN PATIENT ELE: No Prescriptions: oxyCODONE HCl [Roxicodone] 5 mg PO Q4H PRN #16 tablet PRN Reason: pain relief Doxycycline [Vibra-Tabs] 100 mg PO Q12HR #24 tab Instructions: Cellulitis, Adult Referrals: PCP,None [Primary Care Provider] - Forms: ED Department Discharge Additional Instructions: Evaluation the emergency room today in regards to increasing pain swelling and redness starting in the antecubital fossa of your left arm. Unclear whether you were stung or poked by some vegetation that inoculated the skin of your left upper forearm over the elbow that started off an infection. As indicated the pain and inflammation is spreading up the left biceps to the shoulder on the left side. Erythema tenderness and swelling as well localized to the antecubital fossa of your elbow. You were therefore treated with intravenous antibiotic Rocephin 2 g in the emergency room and oral doxycycline 200 mg in the emergency department. He also received Toradol 30 mg IV and Dilaudid 0.5 mg IV for pain relief. Treatment at home is to be doxycycline 100 mg twice daily for the next 12 days with the next tablet taken before bed tonight with a little something in your stomach. May use Motrin 600 mg every 6 hours to reduce pain and inflammation. If pain not well controlled with Motrin alone may use Roxicodone tablet 5 mg strength 1 or 2 every 4-6 hours as necessary for pain relief over the next few days until the antibiotics become effective. You should appreciate marked improvement over the next 48 to 72 hours in regards to pain relief and swelling and redness in the left arm. Lab tests confirm a mild elevation of your white blood cell count indicating that you are fighting off an infection. Sepsis Event Note (ED) - Evaluation Sepsis Screening Result: No Definite Risk - Focused Exam Vital Signs: Vital Signs Temp Pulse Resp BP Pulse Ox 11/09/20 15:46 36.8 C 74 18 133/81 100 - My Orders Last 24 Hours: My Active Orders 11/09/20 15:57 Peripheral IV Care [RC] . DIRECTED Sodium Chloride 0.9% [Saline Flush] 10 ml FLUSH ASDIRECTED PRN Peripheral IV Insertion Adult [OM.PC] Stat 11/09/20 16:15 Ketorolac [Toradol] 30 mg IVPUSH ONETIME - Assessment/Plan Last 24 Hours: My Active Orders 11/09/20 15:57 Peripheral IV Care [RC] . DIRECTED Sodium Chloride 0.9% [Saline Flush] 10 ml FLUSH ASDIRECTED PRN Peripheral IV Insertion Adult [OM.PC] Stat 11/09/20 16:15 Ketorolac [Toradol] 30 mg IVPUSH ONETIME
[2020-11-09] MEDS ORDERED: Ketorolac 30 MG/ML SDV IVPUSH ONE (16:12)
[2020-11-09] MEDS ORDERED: Ketorolac 30 MG/ML SDV IVPUSH SCH (16:15)
[2020-11-09] MEDS ORDERED: HYDROmorphone 0.5 MG/0.5 ML Syringe IVPUSH ONE (16:41)
== END 2020-11-09 17:08 | disposition home or self-care (01) ==
LOC: JD.ED 15:39
DX: L03.114 Cellulitis of left upper limb (principal); R79.82 Elevated C-reactive protein (CRP); Z72.0 Tobacco use
CPT/HCPCS: 36415; 82550; 85025; 86140; 96365; 96375; 99283; A9270; J0696; J1170; J1885; 99284

== ENCOUNTER 2020-11-11 17:39 | Emergency (ER) | payer SELFPAY ==
[2020-11-11] MEDS ORDERED: HYDROmorphone 1 MG/ML Syringe IVPUSH ONE (18:28)
[2020-11-11] MEDS ORDERED: Ketorolac 30 MG/ML SDV IVPUSH ONE (18:28)
[2020-11-11] MEDS ORDERED: cefTRIAXone 2 GM in Sodium Chloride 0.9% 100 ML IV ONE (18:28)
[2020-11-11] MEDS ORDERED: Ondansetron 4 MG/2 ML SDV IVPUSH ONE (18:28)
--- NOTE | 2020-11-11 18:36 | EDM.PDOC ---
ED HPI GENERAL MEDICAL PROBLEM - General Chief Complaint: General Stated Complaint: CELLULITIS IN THE ARM NOT GETTING BETTER Time Seen by Provider: 11/11/20 18:20 Source of Information: Reports: Patient History Limitations: Reports: No Limitations - History of Present Illness INITIAL COMMENTS - FREE TEXT/NARRATIVE: 35-year-old male presents with worsening cellulitis to his left antecubital fossa. He was recently seen and treated in the emergency department on the 16 of this month. 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 He was seen in the emergency department and given a dose of IV Rocephin and started on doxycycline 100 mg twice daily at that time. Patient presents today with worsening pain and nausea. He denies any fever or chills however. States he has been taking Aleve 2 tabs twice daily as well as the oxycodone that was prescribed and the doxycycline however the pain has worsened. He does have an area of redness extending out from his left antecubital fossa approximately 6 cm x 6 cm. Does have a raised ulcered area noted to his left AC which is nay roximately 4 cm x 1 cm. Left Arm Pain Score (Numeric/FACES): 10 - Related Data Allergies Allergy/AdvReac Type Severity Reaction Status Date / Time No Known Allergies Allergy Verified 11/09/20 15:51 Home Meds: Home Meds Doxycycline [Vibra-Tabs] 100 mg PO Q12HR #24 tab 11/09/20 [Rx] oxyCODONE HCl [Roxicodone] 5 mg PO Q4H PRN #16 tablet 11/09/20 [Rx] Doxycycline [Vibra-Tabs] 200 mg PO Q12HR #28 tab 11/11/20 [Rx] Sulfamethoxazole/Trimethoprim [Bactrim Ds Tablet] 2 each PO BID #28 tablet 10/25 05/14 [Rx] oxyCODONE HCl/Acetaminophen [Percocet 5-325 mg Tablet] 1 each PO Q6H PRN #12 tablet 11/11/20 [Rx] Past Medical History - Past Health History Medical/Surgical History: Denies Medical/Surgical History Genitourinary History: Reports: Renal Calculus - Past Surgical History Male Surgical History: Reports: Kidney Stone Extraction, Renal Calculus Social & Family History - Tobacco Use Tobacco Use Status *Q: Current Every Day Tobacco User Years of Tobacco use: 1 Packs/Tins Daily: 0.5 - Caffeine Use Caffeine Use: Reports: Coffee, Energy Drinks, Soda, Tea - Recreational Drug Use Recreational Drug Use: No - Living Situation & Occupation Living situation: Reports: with Significant Other Occupation: Unemployed ED ROS GENERAL - Review of Systems Review Of Systems: Comprehensive ROS is negative, except as noted in HPI. ED EXAM, GENERAL - Physical Exam Exam: See Below Exam Limited By: No Limitations General Appearance: Alert, WD/WN, Moderate Distress Eye Exam: Bilateral Eye: PERRL Ears: Hearing Grossly Normal Nose: Normal Inspection Throat/Mouth: Normal Inspection, Normal Lips, Normal Voice, No Airway Compromise Head: Atraumatic, Normocephalic Neck: Normal Inspection, Supple, Non-Tender, Full Range of Motion Respiratory/Chest: No Respiratory Distress, Lungs Clear, Normal Breath Sounds, No Accessory Muscle Use, Chest Non-Tender Cardiovascular: Normal Peripheral Pulses, Regular Rate, Rhythm (Male) Exam: Deferred Rectal (Males) Exam: Deferred Back Exam: Normal Inspection, Full Range of Motion Extremities: Other (area of redness extending out from his left antecubital fossa approximately 6 cm x 6 cm. Does have a raised ulcered area noted to his left AC which is approximately 4 cm x 1 cm.). No: Normal Inspection (area of redness extending out from his left antecubital fossa approximately 6 cm x 6 cm. Does have a raised ulcered area noted to his left AC which is approximately 4 cm x 1 cm.), Normal Range of Motion (Patient is unable to fully extend his right arm), Non-Tender (Viry exquisitely tender at area of erythema and edema.) Neurological: Alert, Oriented, Normal Cognition Psychiatric: Anxious Skin Exam: Warm, Dry, Intact, No Rash, Wound/Incision (area of redness extending out from his left antecubital fossa approximately 6 cm x 6 cm. Does have a raised ulcered area noted to his left AC which is approximately 4 cm x 1 cm.) Lymphatic: No Adenopathy Course - Vital Signs Text/Narrative:: Have ordered a CBC, C-reactive protein and a CPK on this patient. He will see 2 g of IV Rocephin and pain medication as well as some nausea medication. Last Recorded V/S: Last Vital Signs Temp 97.6 F 02/18/21 17:49 Pulse 79 11/11/20 17:49 Resp 16 11/11/20 17:49 BP 150/85 H 11/11/20 17:49 Pulse Ox 97 11/11/20 17:49 - Orders/Labs/Meds Labs: Laboratory Tests 11/11/20 11/11/20 Range/Units 17:53 17:53 WBC 10.60 H (4.23-9.07) K/mm3 RBC 4.80 (4.63-6.08) M/mm3 Hgb 14.0 (13.7-17.5) gm/dl Hct 42.0 (40.1-51.0) % MCV 87.5 (79.0-92.2) fl MCH 29.2 (25.7-32.2) pg MCHC 33.3 (32.2-35.5) g/dl RDW Std Deviation 42.0 (35.1-43.9) fL Plt Count 290 (163-337) K/mm3 MPV 9.9 (9.4-12.3) fl Neut % (Auto) 80.3 H (34.0-67.9) % Lymph % (Auto) 12.9 L (21.8-53.1) % [place] % (Auto) 5.7 (5.3-12.2) % Eos % (Auto) 0.6 L (0.8-7.0) Baso % (Auto) 0.2 (0.1-1.2) % Neut # (Auto) 8.52 H (1.78-5.38) K/mm3 Lymph # (Auto) 1.37 (1.32-3.57) K/mm3 [place] # (Auto) 0.60 (0.30-0.82) K/mm3 Eos # (Auto) 0.06 (0.04-0.54) K/mm3 Baso # (Auto) 0.02 (0.01-0.08) K/mm3 Manual Slide Review Normal smear Creatine Kinase 80 (39-308) U/L C-Reactive Protein 8.6 H* (<1.0) mg/dL Meds: Medications Discontinued Medications Generic Name Dose Route Start Last Admin Trade Name Freq PRN Reason Stop Dose Admin Hydromorphone HCl 1 mg 11/11/20 18:28 11/11/20 18:59 Dilaudid IVPUSH 11/11/20 18:29 1 mg ONETIME ONE Administration Ceftriaxone Sodium 2 gm/ 100 mls @ 200 mls/hr 11/11/20 18:28 11/11/20 18:39 Sodium Chloride IV 11/11/20 18:57 200 mls/hr ONETIME ONE Administration Ketorolac Tromethamine 30 mg 11/11/20 18:28 11/11/20 18:36 Toradol IVPUSH 11/11/20 18:29 30 mg ONETIME ONE Administration Ondansetron HCl 4 mg 11/11/20 18:28 11/11/20 18:36 Zofran IVPUSH 11/11/20 18:29 4 mg ONETIME ONE Administration - Re-Assessments/Exams Free Text/Narrative Re-Assessment/Exam: 11/11/20 19:20 lAbs reveal a WBC of 10.60, neutrophil percentage 80.3, CPK 80 C-reactive protein 8.6. Has received his dose of IV Rocephin. I will discharge him to home on a course of doxycycline 200 mg twice daily x7 days and Bactrim DS 2 tabs 2 times daily x7 days. Departure - Departure Time of Disposition: 19:20 Disposition: Home, Self-Care 01 Condition: Fair Clinical Impression: Cellulitis of left upper extremity Cellulitis Qualifiers: Site of cellulitis: extremity Site of cellulitis of extremity: upper extremity Laterality: left Qualified Code(s): L03.114 - Cellulitis of left upper limb - Discharge Information Prescriptions: Sulfamethoxazole/Trimethoprim [Bactrim Ds Tablet] 2 each PO BID #28 tablet oxyCODONE HCl/Acetaminophen [Percocet 5-325 mg Tablet] 1 each PO Q6H PRN #12 tablet PRN Reason: Pain (Severe 7-10) Doxycycline [Vibra-Tabs] 200 mg PO Q12HR #28 tab Instructions: Cellulitis, Adult, [id number] Referrals: PCP,None [Primary Care Provider] - Forms: ED Department Discharge Additional Instructions: You were seen in the emergency department today with cellulitis to the left arm. Labs showed that you had some elevation in inflammation but your white blood cell count was decreased from the last time you were seen here. You were given IV antibiotics and pain medications. I have sent a prescription for two different antibiotics to your pharmacy. Doxycycline 200mg twice daily. Bactrim 2 tabs twice daily. You can take a percocet 1 tab every 6 hours as needed for severe pain. May use ice to the area 20min at a time three times daily. Know that you may not see an improvement in your symptoms for 48 to 72 hours. Sepsis Event Note (ED) - Evaluation Sepsis Screening Result: No Definite Risk - Focused Exam Vital Signs: Vital Signs Temp Pulse Resp BP Pulse Ox 11/11/20 17:49 97.6 F 79 16 150/85 H 97
== END 2020-11-11 19:43 | disposition home or self-care (01) ==
LOC: JD.ED 17:39
DX: L03.114 Cellulitis of left upper limb (principal); Z72.0 Tobacco use
CPT/HCPCS: 36415; 82550; 85025; 86140; 96365; 96375; 99283; J0696; J1170; J1885; J2405; 99284

== ENCOUNTER 2021-08-04 22:09 | Emergency (ER) | payer MEDICAID ==
[2021-08-04] MEDS ORDERED: Ketorolac 15 MG/ML SDV IVPUSH ONE (23:04)
--- NOTE | 2021-08-04 23:16 | EDM.PDOC ---
ED HPI GENERAL MEDICAL PROBLEM - General Chief Complaint: Flank Pain Stated Complaint: BACK PAIN/ ABDOMINAL PAIN Time Seen by Provider: 08/04/21 22:55 Source of Information: Reports: Patient History Limitations: Reports: No Limitations - History of Present Illness INITIAL COMMENTS - FREE TEXT/NARRATIVE: Patient is a 35-year-old male with a past medical history of kidney stones presenting with a chief complaint of back pain and abdominal pain. Patient reports the pain started this evening rather abruptly. Patient reports the pain is diffuse across his back but feels worse on the left side. He also reports that abdominal pain which is diffuse but also worse in the left side. Nothing seems to make symptoms better or worse. Patient reports pain is severe. Patient reports to mild episodes that occurred earlier in the month but these resolved spontaneously. Patient states this is more painful than his previous kidney stones. He otherwise denies fevers, chills, nausea, vomiting, dysuria, saddle paresthesias, urinary incontinence. No inventions performed prior to arrival. Patient additionally denies fevers, IV drug abuse, chronic steroid use, prior back surgery. 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 [No Known Home Meds] 08/04/21 [History] Past Medical History - Past Health History Medical/Surgical History: Denies Medical/Surgical History Genitourinary History: Reports: Renal Calculus - Infectious Disease History Infectious Disease History: Reports: Chicken Pox - Past Surgical History Male Surgical History: Reports: Kidney Stone Extraction, Lithotripsy ([facility]), Renal Calculus Social & Family History - Tobacco Use Tobacco Use Status *Q: Never Tobacco User - Caffeine Use Caffeine Use: Reports: Coffee, Energy Drinks, Soda, Tea - Recreational Drug Use Recreational Drug Use: No - Living Situation & Occupation Living situation: Reports: with Significant Other Occupation: Unemployed ED ROS GENERAL - Review of Systems Review Of Systems: See Below Free Text/Narrative/Comment: In addition to that documented in the HPI above, the additional ROS was obtained: Constitutional: Denies fevers or chills Eyes: Denies vision changes ENMT: Denies sore throat CV: Denies chest pain Resp: Denies SOB GI: Denies vomiting or diarrhea : Denies painful urination MSK: Denies recent trauma Skin: Denies new rashes Neuro: Denies new numbness or tingling or weakness Endocrine: Denies unexpected weight loss Heme: Denies bleeding disorders ED EXAM, RENAL/ - Physical Exam Exam: See Below Text/Narrative:: I have reviewed the triage vital signs Const: Well nourished, well developed, appears stated age. Uncomfortable in appearance writhing in bed. Eyes: Pupils Equal and reactive to light bilaterally, no conjunctival injection HENT: No signs of trauma or swelling, Neck supple without meningismus CV: Regular Rate Rhythm, Warm, well-perfused extremities RESP: Unlabored respiratory effort GI: soft, non-tender, non-distended, no masses MSK: No gross deformities appreciated : (COLLINS Stewart present) slight tenderness palpation of the left testicle without swelling. No epididymal tenderness. Cremasteric reflex intact. Skin: Warm, dry. No rashes Neuro: Alert, tipple repairer II-XII grossly intact. Sensation and motor function of extremities grossly intact. Psych: Appropriate mood and affect. Course - Vital Signs Last Recorded V/S: Last Vital Signs Temp 36.9 C 08/04/21 22:42 Pulse 75 08/04/21 22:42 Resp 20 08/04/21 22:42 BP 134/92 H 08/04/21 22:42 Pulse Ox 98 08/04/21 22:42 - Orders/Labs/Meds Orders: Active Orders 24 hr Category Date Time Status Abdomen Pelvis wo Cont [CT] Stat Exams 08/04/21 23:04 Taken Testicular US [Scrotum and Contents] [US] Stat Exams 08/05/21 01:46 Taken Labs: Laboratory Tests 08/04/21 08/04/21 08/04/21 Range/Units 23:07 23:07 23:10 WBC 7.82 (4.23-9.07) K/mm3 RBC 4.65 (4.63-6.08) M/mm3 Hgb 13.9 (13.7-17.5) gm/dl Hct 41.7 (40.1-51.0) % MCV 89.7 (79.0-92.2) fl MCH 29.9 (25.7-32.2) pg MCHC 33.3 (32.2-35.5) g/dl RDW Std Deviation 43.0 (35.1-43.9) fL Plt Count 281 (163-337) K/mm3 MPV 9.7 (9.4-12.3) fl Neut % (Auto) 63.5 (34.0-67.9) % Lymph % (Auto) 26.9 (21.8-53.1) % [facility] % (Auto) 6.5 (5.3-12.2) % Eos % (Auto) 2.6 (0.8-7.0) Baso % (Auto) 0.4 (0.1-1.2) % Neut # (Auto) 4.97 (1.78-5.38) K/mm3 Lymph # (Auto) 2.10 (1.32-3.57) K/mm3 [facility] # (Auto) 0.51 (0.30-0.82) K/mm3 Eos # (Auto) 0.20 (0.04-0.54) K/mm3 Baso # (Auto) 0.03 (0.01-0.08) K/mm3 Sodium 141 (136-145) mEq/L Potassium 3.9 (3.5-5.1) mEq/L Chloride 104 (98-107) mEq/L Carbon Dioxide 29 (21-32) mEq/L Anion Gap 11.9 (5-15) BUN 20 H (7-18) mg/dL Creatinine 1.0 (0.7-1.3) mg/dL Est Cr Clr Drug Dosing 98.80 mL/min Estimated GFR (MDRD) > 60 (>60) mL/min BUN/Creatinine Ratio 20.0 H (14-18) Glucose 101 H (70-99) mg/dL Calcium 8.9 (8.5-10.1) mg/dL Total Bilirubin 0.2 (0.2-1.0) mg/dL AST 16 (15-37) U/L ALT 24 (16-63) U/L Alkaline Phosphatase 55 (46-116) U/L Total Protein 7.3 (6.4-8.2) g/dl Albumin 3.7 (3.4-5.0) g/dl Globulin 3.6 gm/dL Albumin/Globulin Ratio 1.0 (1-2) Lipase 132 (73-393) U/L Urine Color Yellow (Yellow) Urine Appearance Clear (Clear) Urine pH 6.0 (5.0-8.0) Ur Specific [place]kins 1.025 (1.005-1.030) Urine Protein Negative (Negative) Urine Glucose (UA) Negative (Negative) Urine Ketones Negative (Negative) Urine Occult Blood Trace-intact H (Negative) Urine Nitrite Negative (Negative) Urine Bilirubin Negative (Negative) Urine Urobilinogen 0.2 (0.2-1.0) Ur Leukocyte Esterase Negative (Negative) Urine RBC 0-5 (0-5) /hpf Urine WBC Not seen (0-5) /hpf Ur Squamous Epith Cells 0-5 (0-5) /hpf Urine Bacteria Rare (FEW) /hpf Urine Mucus Few (FEW) /hpf C trachomatis DNA (PCR) N gonorrhoeae DNA (PCR) 08/05/21 Range/Units 02:14 WBC (4.23-9.07) K/mm3 RBC (4.63-6.08) M/mm3 Hgb (13.7-17.5) gm/dl Hct (40.1-51.0) % MCV (79.0-92.2) fl MCH (25.7-32.2) pg MCHC (32.2-35.5) g/dl RDW Std Deviation (35.1-43.9) fL Plt Count (163-337) K/mm3 MPV (9.4-12.3) fl Neut % (Auto) (34.0-67.9) % Lymph % (Auto) (21.8-53.1) % [facility] % (Auto) (5.3-12.2) % Eos % (Auto) (0.8-7.0) Baso % (Auto) (0.1-1.2) % Neut # (Auto) (1.78-5.38) K/mm3 Lymph # (Auto) (1.32-3.57) K/mm3 [facility] # (Auto) (0.30-0.82) K/mm3 Eos # (Auto) (0.04-0.54) K/mm3 Baso # (Auto) (0.01-0.08) K/mm3 Sodium (136-145) mEq/L Potassium (3.5-5.1) mEq/L Chloride (98-107) mEq/L Carbon Dioxide (21-32) mEq/L Anion Gap (5-15) BUN (7-18) mg/dL Creatinine (0.7-1.3) mg/dL Est Cr Clr Drug Dosing mL/min Estimated GFR (MDRD) (>60) mL/min BUN/Creatinine Ratio (14-18) Glucose (70-99) mg/dL Calcium (8.5-10.1) mg/dL Total Bilirubin (0.2-1.0) mg/dL AST (15-37) U/L ALT (16-63) U/L Alkaline Phosphatase (46-116) U/L Total Protein (6.4-8.2) g/dl Albumin (3.4-5.0) g/dl Globulin gm/dL Albumin/Globulin Ratio (1-2) Lipase (73-393) U/L Urine Color (Yellow) Urine Appearance (Clear) Urine pH (5.0-8.0) Ur Specific Elkins (1.005-1.030) Urine Protein (Negative) Urine Glucose (UA) (Negative) Urine Ketones (Negative) Urine Occult Blood (Negative) Urine Nitrite (Negative) Urine Bilirubin (Negative) Urine Urobilinogen (0.2-1.0) Ur Leukocyte Esterase (Negative) Urine RBC (0-5) /hpf Urine WBC (0-5) /hpf Ur Squamous Epith Cells (0-5) /hpf Urine Bacteria (FEW) /hpf Urine Mucus (FEW) /hpf C trachomatis DNA (PCR) Not detected N gonorrhoeae DNA (PCR) Not detected Meds: Medications Discontinued Medications Generic Name Dose Route Start Last Admin Trade Name Freq PRN Reason Stop Dose Admin Cyclobenzaprine HCl 10 mg 08/05/21 01:47 08/05/21 02:38 Cyclobenzaprine 10 Mg Tab PO 08/05/21 01:48 10 mg ONETIME ONE Administration Ketorolac Tromethamine 15 mg 08/04/21 23:04 08/04/21 23:08 Ketorolac 15 Mg/Ml Sdv IVPUSH 08/04/21 23:05 15 mg ONETIME ONE Administration Morphine Sulfate 4 mg 08/04/21 23:53 08/05/21 00:06 Morphine 4 Mg/Ml Syringe IVPUSH 08/04/21 23:54 4 mg ONETIME ONE Administration Morphine Sulfate 4 mg 08/05/21 01:03 08/05/21 01:15 Morphine 4 Mg/Ml Syringe IVPUSH 08/05/21 01:04 4 mg ONETIME ONE Administration Ondansetron HCl 4 mg 08/04/21 23:53 08/05/21 00:06 Ondansetron 4 Mg/2 Ml Sdv IVPUSH 08/04/21 23:54 4 mg ONETIME ONE Administration Departure - Departure Time of Disposition: 04:17 Disposition: Home, Self-Care 01 Clinical Impression: Lumbar spine strain Qualifiers: Encounter type: initial encounter Qualified Code(s): S39.012A - Strain of muscle, fascia and tendon of lower back, initial encounter - Discharge Information Instructions: Lumbar Strain Referrals: PCP,None [Primary Care Provider] - Forms: ED Department Discharge Sepsis Event Note (ED) - Focused Exam Vital Signs: Vital Signs Temp Pulse Resp BP Pulse Ox 08/04/21 22:42 36.9 C 75 20 134/92 H 98 - My Orders Last 24 Hours: My Active Orders 08/04/21 23:04 Abdomen Pelvis wo Cont [CT] Stat 08/05/21 01:46 Testicular US [Scrotum and Contents] [US] Stat - Assessment/Plan Last 24 Hours: My Active Orders 08/04/21 23:04 Abdomen Pelvis wo Cont [CT] Stat 08/05/21 01:46 Testicular US [Scrotum and Contents] [US] Stat Assessment:: Patient is a 35-year-old male presenting to the emergency room with a complaint of back pain and abdominal pain. Patient had uncomplicated emergency department course. Patient complaining of pain during the ER stay. Patient did receive Toradol and morphine for his pain. Extensive work-up was completed with broad differential diagnosis considered including but not limited to kidney stone, diverticulitis, appendicitis, AAA, testicular torsion, strangulated hernia, cauda equina syndrome. Work-up in the emergency room entirely negative. CT scan, scrotal ultrasound, laboratory studies without findings. At this point, I do not believe patient warrants further work-up in the emergency room. He was given prescription for pain medication and discharged with outpatient follow-up recommendations. Return precautions discussed. Patient agrees with plan of care.
[2021-08-04] MEDS ORDERED: Ondansetron 4 MG/2 ML SDV IVPUSH ONE (23:53)
[2021-08-04] MEDS ORDERED: Morphine 4 MG/ML Syringe IVPUSH ONE (23:53)
[2021-08-05] MEDS ORDERED: Morphine 4 MG/ML Syringe IVPUSH ONE (01:03)
[2021-08-05] MEDS ORDERED: Cyclobenzaprine 10 MG Tab PO ONE (01:47)
[2021-08-05 04:13] LABS: C. TRACHOMATIS BY PCR NOT DETECTED; N. GONORRHOEAE BY PCR NOT DETECTED
--- NOTE | 2021-08-05 06:04 | CT ---
CT abdomen and pelvis Technique: Multiple axial sections were obtained from above the dome of the diaphragm inferiorly through the pubic symphysis. Intravenous and oral contrast were not utilized. Reconstructed coronal and sagittal images were also obtained. Comparison: No prior abdominal imaging is available. Findings: Kidneys show no abnormal calcifications. No ureteral dilatation or ureteral stone is seen. No bladder calculi are noted. Visualized lung bases show nothing acute. Liver contains no focal parenchymal abnormality. Spleen size is normal. Adrenal glands show no nodule. No abnormality is appreciated within the pancreas. Gallbladder contains no calcified gallstones. Abdominal aorta shows no aneurysm. No retroperitoneal adenopathy or mesenteric abnormalities are seen. Appendix is seen which is normal in size. No pelvic mass or adenopathy is seen. Calcifications are seen within the prostate gland. No discrete bowel abnormality is appreciated. Bone window settings were reviewed which show disc space narrowing at L3-4 and L4-5. Posterior disc space narrowing is seen at L5-S1. Impression: 1. No renal calculi, no hydronephrosis or ureteral stone. 2. Incidental degenerative change within the spine. 3. Nothing acute is appreciated on noncontrast CT study of the abdomen and pelvis. Diagnostic code #2 I agree with preliminary report from [facility], finalized on 08/05/21, 2:00 AM FACILITY WORKER, code 1
--- NOTE | 2021-08-05 06:09 | US ---
Testicular ultrasound: Multiple real-time images of the testicles were obtained. Comparison: No prior testicular ultrasound is available. Testicles have a homogeneous ultrasound appearance. No intratesticular abnormality is appreciated. Arterial and venous blood flow are seen within both testicles. Minimal hydroceles are noted. Minimal epididymal cysts are seen which are believed to be incidental. Largest epididymal cyst measures 5 mm. Measurements: Right testicle: 4.5 x 2.4 x 3.1 cm Left testicle: 4.4 x 2.4 x 3.0 cm Impression: 1. Testicles appear within normal limits. 2. Several minimal epididymal cysts which are felt to be incidental. 3. Minimal bilateral hydroceles are seen. 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
== END 2021-08-05 05:00 | disposition home or self-care (01) ==
LOC: JD.ED 22:09
DX: S39.012A Strain of muscle, fascia and tendon of lower back, initial encounter (principal); X58.XXXA Exposure to other specified factors, initial encounter
CPT/HCPCS: 36415; 74176; 76870; 80053; 81001; 83690; 85025; 87491; 87591; 93975; 96374; 96375; 96376; 99284; A9270; J1885; J2270; J2405

== ENCOUNTER 2021-08-08 18:47 | Emergency (ER) | payer MEDICAID ==
[2021-08-08] MEDS ORDERED: Orphenadrine 100 MG Tab.ER PO STA (20:34)
[2021-08-08] MEDS ORDERED: Ondansetron 4 MG/2 ML SDV IVPUSH ONE (20:34)
[2021-08-08] MEDS ORDERED: HYDROmorphone 1 MG/ML Syringe IVPUSH ONE ×2 (20:34→21:45)
--- NOTE | 2021-08-08 20:40 | EDM.PDOC ---
ED HPI GENERAL MEDICAL PROBLEM - General Chief Complaint: Flank Pain Stated Complaint: ABD/BACK/GROIN PAIN Time Seen by Provider: 08/08/21 19:32 Source of Information: Reports: Patient, Old Records (ED visit 08/04/2021) History Limitations: Reports: No Limitations - History of Present Illness INITIAL COMMENTS - FREE TEXT/NARRATIVE: Mr. Coburn is a 35-year-old man who, medical records indicate, was seen in this ED on 08/04/2021 with a complaint at that time of severe back and abdominal pain that had developed suddenly that evening. He reported that the pain was felt across his entire back, but worse on the left than the right, as well as diffuse abdominal pain, also worse on the left than the right. He had not identified any modifiers. He had not had a recent fever, chills, nausea, vomiting, dysuria, saddle paresthesia, or urinary incontinence. He had not taken any hdfq-fcd-fgoupvs or home remedies since the onset of his symptoms. He was found to be hemodynamically stable, afebrile, saturating 98% on room air. His physical exam was remarkable for a nontender abdomen, but slight tenderness to palpation of his left testis without notable swelling. No epididymal tenderness. The cremasteric reflex was intact. Work-up included a CBC, CMP, lipase level, urinalysis, urine GC/chlamydia by PCR, and ultrasound of the scrotum and contents, and a CT of the abdomen and pelvis without contrast. His entire work-up was unremarkable, with no significant abnormalities. During his ED visit, he was treated with oral Flexeril, IV Toradol, IV morphine, and IV Zofran. He was discharged home with a diagnosis of a muscle strain. He was given a prescription for a pain medication (not specified) and instructions to follow-up as an outpatient. The patient now returns the ED stating that his abdominal and lower back pain, both worse on the left than the right, have continued. He states that his symptoms originally began on evening, 08/04/2021, but have progressively gotten worse. He states that he developed watery diarrhea on 08/06/2021, and nausea and vomiting last night, 08/07/2021. He states that he went to the walk-in clinic today, but was sent here. The patient states that he has been taking 4 to 5 tablets of vzhn-ajm-grwsnxl ibuprofen every 3-4 hours, along with 3 tablets of Excedrin every 3-4 hours, and 3 tablets of acetaminophen every 3-4 hours. Here in the ED tonight, the patient's initial BP is found to be mildly elevated 140/91, otherwise, he is hemodynamically stable, afebrile, saturating 100% on room air. He appears to be somewhat uncomfortable, although is in no acute distress. Other than the above symptoms, the patient denies having a recent fever, chills, sore throat, ear pain, nasal or sinus congestion, cough, dyspnea, chest pain, palpitations, constipation, diarrhea, urinary symptoms, recent weight gain or weight loss, recent bloody bowel movements or black bowel movements, recent joint aches, headaches, or rashes. The patient does not have a PCP. He has not received a COVID vaccination, nor an influenza vaccination this season. left Pain Score (Numeric/FACES): 9 - Related Data Allergies Allergy/AdvReac Type Severity Reaction Status Date / Time No Known Allergies Allergy Verified 08/08/21 19:17 Home Meds: Home Meds Acetaminophen/oxyCODONE [Percocet 325-5 MG] 1 - 2 tab PO Q6H PRN #20 tab 08/09/21 [Rx] Orphenadrine [Norflex] 1 tab PO Q12H PRN #14 tab.er 08/09/21 [Rx] Past Medical History Genitourinary History: Reports: Renal Calculus - Infectious Disease History Infectious Disease History: Reports: Chicken Pox - Past Surgical History HEENT Surgical History: Reports: Oral Surgery (dental extractions) Male Surgical History: Reports: Kidney Stone Extraction (x 1), Lithotripsy (ESWL) (x 2) Social & Family History - Tobacco Use Tobacco Use Status *Q: Former Tobacco User Years of Tobacco use: 9 Packs/Tins Daily: 0.5 Month/Year Tobacco Last Used: Quit 2014 Tobacco Use Comment: Started smoking 2005 - Caffeine Use Caffeine Use: Reports: Coffee, Energy Drinks, Soda, Tea - Alcohol Use Alcohol Use History: No - Recreational Drug Use Recreational Drug Use: Yes Drug Use in Last 12 Months: No Recreational Drug Type: Reports: Marijuana/Hashish (last smoked around 2009) - Living Situation & Occupation Living situation: Reports: Single, with Significant Other (Fianc), with Family (1 son) Occupation: Employed ([email or web address]) ED ROS GENERAL - Review of Systems Review Of Systems: Comprehensive ROS is negative, except as noted in HPI. ED EXAM, GENERAL - Physical Exam Exam: See Below Exam Limited By: No Limitations General Appearance: Alert, WD/WN, Mild Distress (appears uncomfortable) Eye Exam: Bilateral Eye: EOMI, Normal Inspection Ears: Normal External Exam, Hearing Grossly Normal Nose: Normal Inspection Throat/Mouth: Normal Inspection, Normal Lips, Normal Voice, No Airway Compromise Head: Atraumatic, Normocephalic Neck: Normal Inspection, Full Range of Motion Respiratory/Chest: No Respiratory Distress, Lungs Clear, Normal Breath Sounds, No Accessory Muscle Use Cardiovascular: Normal Peripheral Pulses, Regular Rate, Rhythm, No Edema, No Gallop, No JVD, No Murmur, No Rub Peripheral Pulses: 3+: Radial (L), Radial (R) GI/Abdominal: Normal Bowel Sounds, Soft, No Organomegaly, No Distention, No Abnormal Bruit, No Mass, Tender (generalized, non-focal) Back Exam: CVA Tenderness (L), CVA Tenderness (R), Decreased Range of Motion, Muscle Spasm (lumbar), Paraspinal Tenderness (lumbar), Vertebral Tenderness (lumbar) Extremities: Normal Inspection, Normal Range of Motion, No Pedal Edema, Normal Capillary Refill Neurological: Alert, Oriented, Normal Cognition, No Motor/Sensory Deficits Psychiatric: Normal Affect Skin Exam: Warm, Dry, Intact, Normal Color, No Rash Course - Vital Signs Last Recorded V/S: Last Vital Signs Temp 36.4 C 08/08/21 19:14 Pulse 78 08/09/21 01:00 Resp 20 08/09/21 01:00 BP 135/75 08/09/21 01:00 Pulse Ox 96 08/09/21 01:00 - Orders/Labs/Meds Labs: Laboratory Tests 08/08/21 08/08/21 08/08/21 Range/Units 20:16 20:16 21:00 WBC 8.30 (4.23-9.07) K/mm3 RBC 4.31 L (4.63-6.08) M/mm3 Hgb 12.5 L (13.7-17.5) gm/dl Hct 39.4 L (40.1-51.0) % MCV 91.4 (79.0-92.2) fl MCH 29.0 (25.7-32.2) pg MCHC 31.7 L (32.2-35.5) g/dl RDW Std Deviation 43.4 (35.1-43.9) fL Plt Count 254 (163-337) K/mm3 MPV 10.1 (9.4-12.3) fl Neutrophils % (Manual) 63 H (40-60) % Band Neutrophils % 0 (0-10) % Lymphocytes % (Manual) 26 (20-40) % Atypical Lymphs % 2 % Monocytes % (Manual) 8 (2-10) % Eosinophils % (Manual) 1 (0.8-7.0) % Basophils % (Manual) 0 L (0.2-1.2) Platelet Estimate Adequate RBC Morph Comment Normal D-Dimer, Quantitative (0.19-0.50) mg/L Sodium (136-145) mEq/L Potassium (3.5-5.1) mEq/L Chloride (98-107) mEq/L Carbon Dioxide (21-32) mEq/L Anion Gap (5-15) BUN (7-18) mg/dL Creatinine (0.7-1.3) mg/dL Est Cr Clr Drug Dosing mL/min Estimated GFR (MDRD) (>60) mL/min BUN/Creatinine Ratio (14-18) Glucose (70-99) mg/dL Lactic Acid (0.4-2.0) mmol/L Calcium (8.5-10.1) mg/dL Total Bilirubin (0.2-1.0) mg/dL AST (15-37) U/L ALT (16-63) U/L Alkaline Phosphatase (46-116) U/L C-Reactive Protein (<1.0) mg/dL Total Protein (6.4-8.2) g/dl Albumin (3.4-5.0) g/dl Globulin gm/dL Albumin/Globulin Ratio (1-2) Urine Color Yellow (Yellow) Urine Appearance Cloudy H (Clear) Urine pH 6.5 (5.0-8.0) Ur Specific [place] 1.025 (1.005-1.030) Urine Protein Negative (Negative) Urine Glucose (UA) Negative (Negative) Urine Ketones Negative (Negative) Urine Occult Blood 3+ H (Negative) Urine Nitrite Negative (Negative) Urine Bilirubin Negative (Negative) Urine Urobilinogen 0.2 (0.2-1.0) Ur Leukocyte Esterase Negative (Negative) Urine RBC >100 H (0-5) /hpf Urine WBC 0-5 (0-5) /hpf Ur Squamous Epith Cells 0-5 (0-5) /hpf Urine Bacteria Few (FEW) /hpf Urine Mucus Few (FEW) /hpf Urine Opiates Screen Negative (QVGZLA=703) Ur Buprenorphine Scrn Negative (CUTOFF=10) Ur Oxycodone Screen Negative (CQZ6QN=217) Urine Methadone Screen Negative (KZS5LI=019) Ur Propoxyphene Screen Negative (WDOPGO=211) Ur Barbiturates Screen Negative (ULNGYI=886) Ur Tricyclics Screen Negative (IWVTDO=624) Ur Phencyclidine Scrn Negative (CUTOFF=25) Ur Amphetamine Screen Negative (ICXXLG=707) U Methamphetamines Scrn Negative (QNYRFW=184) U Benzodiazepines Scrn Negative (VGMGDD=117) U Cocaine Metab Screen Negative (YVILKU=912) U Marijuana (THC) Screen Presumptive positive H (CUTOFF=50) SARS-CoV-2 RNA (BERNABE) (NEGATIVE) 08/08/21 08/08/21 08/08/21 Range/Units 21:00 21:00 21:00 WBC (4.23-9.07) K/mm3 RBC (4.63-6.08) M/mm3 Hgb (13.7-17.5) gm/dl Hct (40.1-51.0) % MCV (79.0-92.2) fl MCH (25.7-32.2) pg MCHC (32.2-35.5) g/dl RDW Std Deviation (35.1-43.9) fL Plt Count (163-337) K/mm3 MPV (9.4-12.3) fl Neutrophils % (Manual) (40-60) % Band Neutrophils % (0-10) % Lymphocytes % (Manual) (20-40) % Atypical Lymphs % % Monocytes % (Manual) (2-10) % Eosinophils % (Manual) (0.8-7.0) % Basophils % (Manual) (0.2-1.2) Platelet Estimate RBC Morph Comment D-Dimer, Quantitative 0.20 (0.19-0.50) mg/L Sodium 142 (136-145) mEq/L Potassium 3.6 (3.5-5.1) mEq/L Chloride 104 (98-107) mEq/L Carbon Dioxide 30 (21-32) mEq/L Anion Gap 11.6 (5-15) BUN 13 (7-18) mg/dL Creatinine 0.8 (0.7-1.3) mg/dL Est Cr Clr Drug Dosing 135.96 mL/min Estimated GFR (MDRD) > 60 (>60) mL/min BUN/Creatinine Ratio 16.3 (14-18) Glucose 99 (70-99) mg/dL Lactic Acid 0.6 (0.4-2.0) mmol/L Calcium 8.1 L (8.5-10.1) mg/dL Total Bilirubin 0.3 (0.2-1.0) mg/dL AST 18 (15-37) U/L ALT 24 (16-63) U/L Alkaline Phosphatase 53 (46-116) U/L C-Reactive Protein 1.4 H* (<1.0) mg/dL Total Protein 6.3 L (6.4-8.2) g/dl Albumin 3.5 (3.4-5.0) g/dl Globulin 2.8 gm/dL Albumin/Globulin Ratio 1.3 (1-2) Urine Color (Yellow) Urine Appearance (Clear) Urine pH (5.0-8.0) Ur Specific [place] (1.005-1.030) Urine Protein (Negative) Urine Glucose (UA) (Negative) Urine Ketones (Negative) Urine Occult Blood (Negative) Urine Nitrite (Negative) Urine Bilirubin (Negative) Urine Urobilinogen (0.2-1.0) Ur Leukocyte Esterase (Negative) Urine RBC (0-5) /hpf Urine WBC (0-5) /hpf Ur Squamous Epith Cells (0-5) /hpf Urine Bacteria (FEW) /hpf Urine Mucus (FEW) /hpf Urine Opiates Screen (BHLNDN=410) Ur Buprenorphine Scrn (CUTOFF=10) Ur Oxycodone Screen (XNS5LE=750) Urine Methadone Screen (KAI4GL=732) Ur Propoxyphene Screen (VURMWA=008) Ur Barbiturates Screen (OKYXKN=075) Ur Tricyclics Screen (QYEPCI=374) Ur Phencyclidine Scrn (CUTOFF=25) Ur Amphetamine Screen (DEBMGV=916) U Methamphetamines Scrn (XSLIUD=250) U Benzodiazepines Scrn (AGGWGH=309) U Cocaine Metab Screen (CYYBDK=618) U Marijuana (THC) Screen (CUTOFF=50) SARS-CoV-2 RNA (BERNABE) (NEGATIVE) 08/08/21 Range/Units 21:54 WBC (4.23-9.07) K/mm3 RBC (4.63-6.08) M/mm3 Hgb (13.7-17.5) gm/dl Hct (40.1-51.0) % MCV (79.0-92.2) fl MCH (25.7-32.2) pg MCHC (32.2-35.5) g/dl RDW Std Deviation (35.1-43.9) fL Plt Count (163-337) K/mm3 MPV (9.4-12.3) fl Neutrophils % (Manual) (40-60) % Band Neutrophils % (0-10) % Lymphocytes % (Manual) (20-40) % Atypical Lymphs % % Monocytes % (Manual) (2-10) % Eosinophils % (Manual) (0.8-7.0) % Basophils % (Manual) (0.2-1.2) Platelet Estimate RBC Morph Comment D-Dimer, Quantitative (0.19-0.50) mg/L Sodium (136-145) mEq/L Potassium (3.5-5.1) mEq/L Chloride (98-107) mEq/L Carbon Dioxide (21-32) mEq/L Anion Gap (5-15) BUN (7-18) mg/dL Creatinine (0.7-1.3) mg/dL Est Cr Clr Drug Dosing mL/min Estimated GFR (MDRD) (>60) mL/min BUN/Creatinine Ratio (14-18) Glucose (70-99) mg/dL Lactic Acid (0.4-2.0) mmol/L Calcium (8.5-10.1) mg/dL Total Bilirubin (0.2-1.0) mg/dL AST (15-37) U/L ALT (16-63) U/L Alkaline Phosphatase (46-116) U/L C-Reactive Protein (<1.0) mg/dL Total Protein (6.4-8.2) g/dl Albumin (3.4-5.0) g/dl Globulin gm/dL Albumin/Globulin Ratio (1-2) Urine Color (Yellow) Urine Appearance (Clear) Urine pH (5.0-8.0) Ur Specific [place] (1.005-1.030) Urine Protein (Negative) Urine Glucose (UA) (Negative) Urine Ketones (Negative) Urine Occult Blood (Negative) Urine Nitrite (Negative) Urine Bilirubin (Negative) Urine Urobilinogen (0.2-1.0) Ur Leukocyte Esterase (Negative) Urine RBC (0-5) /hpf Urine WBC (0-5) /hpf Ur Squamous Epith Cells (0-5) /hpf Urine Bacteria (FEW) /hpf Urine Mucus (FEW) /hpf Urine Opiates Screen (JJODTP=210) Ur Buprenorphine Scrn (CUTOFF=10) Ur Oxycodone Screen (THV4NS=916) Urine Methadone Screen (FVP9QF=008) Ur Propoxyphene Screen (EUSIXE=163) Ur Barbiturates Screen (ILQOGH=099) Ur Tricyclics Screen (FZVTNW=180) Ur Phencyclidine Scrn (CUTOFF=25) Ur Amphetamine Screen (WTBGHM=349) U Methamphetamines Scrn (FFWSHC=566) U Benzodiazepines Scrn (JKESGX=849) U Cocaine Metab Screen (VLJFFF=100) U Marijuana (THC) Screen (CUTOFF=50) SARS-CoV-2 RNA (BERNABE) Negative (NEGATIVE) Meds: Medications Discontinued Medications Generic Name Dose Route Start Last Admin Trade Name Robinson PRN Reason Stop Dose Admin Hydromorphone HCl 1 mg 08/08/21 20:34 08/08/21 21:03 Hydromorphone 1 Mg/Ml Syringe IVPUSH 08/08/21 20:35 1 mg ONETIME ONE Administration Hydromorphone HCl 1 mg 08/08/21 21:45 08/08/21 22:04 Hydromorphone 1 Mg/Ml Syringe IVPUSH 08/08/21 21:46 1 mg ONETIME ONE Administration Hydromorphone HCl 1 mg 08/09/21 00:30 08/09/21 00:46 Hydromorphone 1 Mg/Ml Syringe IVPUSH 08/09/21 00:31 1 mg ONETIME ONE Administration Sodium Chloride 1,000 mls @ 250 mls/hr 08/08/21 20:45 08/08/21 21:04 Normal Saline IV 250 mls/hr ASDIRECTED TD Administration Ondansetron HCl 4 mg 08/08/21 20:34 08/08/21 21:03 Ondansetron 4 Mg/2 Ml Sdv IVPUSH 08/08/21 20:35 4 mg ONETIME ONE Administration Orphenadrine Citrate 100 mg 08/08/21 20:34 08/08/21 21:04 Orphenadrine 100 Mg Tab.Er PO 08/08/21 20:35 100 mg ONETIME STA Administration - Re-Assessments/Exams Free Text/Narrative Re-Assessment/Exam: 08/08/21 20:35 As above, a CBC, CMP, lipase level, urinalysis, urine GC/chlamydia by PCR, ultrasound of the scrotum, and CT of the abdomen and pelvis without contrast were all unremarkable on 08/04/2021. On examination at this time, the patient not only complains of generalized abdominal tenderness, but of tenderness to palpation of his lumbar paraspinous musculature, as well as to palpation of his lumbar spinous processes. I do not want to repeat the work-up from the other day, but I have ordered a work-up that includes several blood tests, including a lactic acid level, a urinalysis and urine drug screen, a swab for the SARS-CoV-2 virus, and a CT of the abdomen pelvis with oral and IV contrast. In the meantime, the patient will be treated with IV Dilaudid, oral Norflex, IV Zofran, and IV fluid. 08/08/21 23:18 The patient's CBC is remarkable for an H/H slightly depressed at 12.4/39.4, and is otherwise unremarkable. His CMP is unremarkable. His lactic acid level is within normal limits at 0.6. His CRP is slightly elevated at 1.4. His D-dimer is within normal limits at 0.20. His urinalysis is remarkable for cloudy appearance, 3+ occult blood with >100 RBCs, leukocyte esterase with 0-5 WBCs, nitrate negative with few bacteria, and 0-5 squamous epithelial cells. His urine drug screen is positive for marijuana, only. His swab for the SARS-CoV-2 virus is negative. Results of his CT of the abdomen and pelvis with oral and IV contrast are still pending. 08/08/21 23:34 CT of the abdomen and pelvis with oral and IV contrast is read by Teto as "No sign of acute intra-abdominal pathology." 08/08/21 23:58 Test results discussed with the patient and his fiance (now present). As above, today's work-up is remarkable for hematuria, but I cannot say that the hematuria has anything to do with his pain. There is no evidence of a ureterolith. I will discharge him home with a prescription for Norflex, and have him take an appropriate dose of hrkb-uem-otjcvmw ibuprofen. I will refer him to the clinic to establish a PCP. He requested a note to be off work. 08/09/21 00:32 Notified by Maris GUADALUPE that the patient is unhappy with going home. He is insisting on additional pain medication. He has already been given 2 mg of IV Dilaudid in the setting of 2 negative workups. I already explained to the patient that I do not feel comfortable prescribing opioids, but he is insistent. At this point, it is bordering on drug seeking behavior. I have ordered additional Dilaudid to be given now, and have written a prescription for Percocet 5/325, 1- 2 tabs p.o. every 6 hours prn pain, #20. Departure - Departure Time of Disposition: 23:59 Disposition: Home, Self-Care 01 Condition: Good Clinical Impression: Abdominal pain of unknown etiology, Back muscle spasm - Discharge Information *PRESCRIPTION DRUG MONITORING PROGRAM REVIEWED*: Not Applicable *COPY OF PRESCRIPTION DRUG MONITORING REPORT IN PATIENT ELE: Not Applicable Prescriptions: Orphenadrine [Norflex] 1 tab PO Q12H PRN #14 tab.er PRN Reason: Muscle Spasm - Painful Acetaminophen/oxyCODONE [Percocet 325-5 MG] 1 - 2 tab PO Q6H PRN #20 tab PRN Reason: Pain (Severe 7-10) Instructions: Muscle Cramps and Spasms, [id number], Abdominal Pain, Adult, [id number] Referrals: PCP,None [Primary Care Provider] - Maira Mitchell NP [Nurse Practitioner] - Forms: ED Department Discharge, ED Return to Work/School Form Additional Instructions: You were seen in the emergency room for continued back pain radiating to your abdomen, along with nausea, vomiting, and diarrhea. Work-up in the ER included several blood tests, a urinalysis, a urine drug screen, a swab for the SARS-CoV-2 virus, and a CT of your abdomen and pelvis with oral and IV contrast. Microscopic blood was found in your urine, otherwise, your work-up was grossly unremarkable. The CT scan did not find any abnormalities. Microscopic blood is not normal, but is fairly common. It is not necessarily related to your pain. There is no sign of a kidney stone or a urinary tract infection. The cause of your symptoms is not known. You have been started on the muscle relaxant Norflex, and a prescription for Norflex has been sent to the [facility]. Take 1 tablet of Norflex every 12 hours, starting tomorrow morning, 08/09/2021, as prescribed. Norflex works well with ibuprofen, however, it is important that you take an appropriate dose. We recommend you take 3 tablets (600 mg) of eoso-jqv-qnjkeem ibuprofen up to every 8 hours, with food. It is important that you stay active. Swimming is best, but walking is good, as well. Please follow-up with Maira Mitchell NP, or one of the other providers in the clinic, to establish a PCP. A note to be off work through 08/15/2021, has been provided. If any other problems, please do not hesitate to return to the ER. Sepsis Event Note (ED) - Evaluation Sepsis Screening Result: No Definite Risk
[2021-08-08] MEDS ORDERED: Sodium Chloride 0.9% 1,000 ML IV SCH (20:45)
[2021-08-09] MEDS ORDERED: HYDROmorphone 1 MG/ML Syringe IVPUSH ONE (00:30)
--- NOTE | 2021-08-09 05:51 | CT ---
CT abdomen and pelvis Technique: Multiple axial sections were obtained from above the dome of the diaphragm inferiorly through the pubic symphysis. Intravenous and oral contrast were utilized. Delayed images were also obtained through the abdomen and pelvis. Reconstructed coronal and sagittal images were obtained. Comparison: Prior CT abdomen and pelvis study of 08/04/21. Findings: Visualized lung bases show nothing acute. Liver shows no focal parenchymal abnormality. Gallbladder contains no calcified gallstones. Spleen size is normal. Adrenal glands show no nodule. Pancreas shows no discrete abnormality. Kidneys show symmetric contrast enhancement without hydronephrosis or mass. Abdominal aorta shows no aneurysm. No retroperitoneal adenopathy or mesenteric abnormalities are seen. No pelvic mass or adenopathy is seen. Slight prostate calcifications are noted. Appendix is felt to be seen and normal in size. No bowel dilatation is seen. Delayed images show contrast excretion into both ureters and into the bladder. Bone window settings were reviewed which show disc space narrowing at L2-3 through L4-5. No acute osseous finding is seen. Impression: 1. Chronic findings as described above. 2. Nothing acute is appreciated on CT study of the abdomen and pelvis. Diagnostic code #2 I agree with preliminary report from [facility], finalized on 08/09/21, 12:08 AM [employer], code 1
== END 2021-08-09 01:00 | disposition home or self-care (01) ==
LOC: JD.ED 18:47
DX: R10.84 Generalized abdominal pain (principal); M62.830 Muscle spasm of back; R79.82 Elevated C-reactive protein (CRP); Z87.891 Personal history of nicotine dependence; Z20.822 Contact with and (suspected) exposure to COVID-19
CPT/HCPCS: 36415; 74177; 80053; 80306; 81001; 83605; 85007; 85027; 85379; 86140; 87635; 96374; 96375; 96376; 99284; A9270; J1170; J2405; J7030; U0002

== ENCOUNTER 2024-01-22 17:15 | Emergency (ER) | payer MEDICAID ==
[2024-01-22 19:06] LABS: BASOPHILS PERCENT AUTO 0.2 % (0.0-1.0); EOSINOPHILS PERCENT AUTO 0.2 % (0.0-6.0); HEMATOCRIT 40.4 % (42.0-52.0); HEMOGLOBIN 13.8 gm/dl (14.0-18.0); IMMATURE GRAN ABSOLUTE AUTO 0.08 K/mm3 (0.00-0.05); IMMATURE GRAN PERCENT AUTO 0.4 % (0.0-0.4); LYMPHOCYTES PERCENT AUTO 5.5 % (24.0-44.0); MEAN CORPUSCULAR HEMOGLOBIN 29.9 pg (28.0-32.0); MEAN CORPUSCULAR HGB CONC 34.2 g/dl (32.0-36.0); MEAN CORPUSCULAR VOLUME 87.6 fl (83.0-99.0); MEAN PLATELET VOLUME 9.2 fl (9.4-12.4); MONOCYTES ABSOLUTE AUTO 0.9 K/mm3 (0.0-0.8); MONOCYTES PERCENT AUTO 4.5 % (0.0-8.0); NEUTROPHILS PERCENT AUTO 89.2 % (41.0-71.0); PLATELET COUNT,PLT 236 K/mm3 (150-400); RED BLOOD CELL COUNT 4.61 M/mm3 (4.52-5.90); WHITE BLOOD CELL COUNT,WBC 19.04 K/mm3 (3.9-11.3)
[2024-01-22 19:38] LABS: APPEARANCE,URINE CLEAR (Clear); BILIRUBIN,URINE 1+ (Negative); COLOR,URINE YELLOW (Yellow); GLUCOSE,URINE NEGATIVE (Negative); KETONES,URINE 2+ (Negative); LEUKOCYTE ESTERASE,URINE NEGATIVE (Negative); NITRITE,URINE NEGATIVE (Negative); OCCULT BLOOD,URINE 2+ (Negative); PROTEIN,URINE 2+ (Negative); UROBILINOGEN,URINE 0.2 (0.2-1.0)
[2024-01-22] MEDS: Ondansetron 4 MG/2 ML SDV IVPUSH ONE (19:40)
[2024-01-22] MEDS: Acetaminophen 325 MG Tab PO ONE (19:40)
[2024-01-22] MEDS: Lactated Ringers 1,000 ML IV ONE (19:41)
[2024-01-22 19:42] LABS: ALBUMIN 3.7 g/dl (3.4-5.0); BILIRUBIN TOTAL 0.9 mg/dL (0.2-1.0); BUN/CREATININE RATIO 15.5 (14-18); C-REACTIVE PROTEIN 20.32 mg/dL (<0.30); CALCIUM 8.8 mg/dL (8.5-10.1); CREATININE 1.1 mg/dL (0.7-1.3); EST CRCL DRUG DOSING (CG) 87.23 mL/min; PROTEIN TOTAL,TP 7.6 g/dl (6.4-8.2)
[2024-01-22 19:44] LABS: CORONAVIRUS COVID-19 NAA NEGATIVE (NEGATIVE); INFLUENZA A NAA NEGATIVE (NEGATIVE); RESPIRATORY SYNCYTIAL VIR NAA NEGATIVE (NEGATIVE)
[2024-01-22 19:45] LABS: LACTIC ACID 0.6 mmol/L (0.4-2.0)
[2024-01-22 19:50] LABS: BACTERIA,URINE FEW /hpf (FEW); MUCUS,URINE MODERATE /hpf (FEW); SQUAMOUS EPITHELIAL CELLS,UR 0-5 /hpf (0-5); WBC,URINE 0-5 /hpf (0-5)
[2024-01-22] MEDS: cefTRIAXone 2 GM in Sodium Chloride 0.9% 100 ML IV ONE (20:09)
[2024-01-22] MEDS: Sodium Chloride 0.9% 1,000 ML IV SCH (20:09)
[2024-01-22] MEDS: Dexamethasone 10 MG/ML SDV IVPUSH ONE (20:57)
[2024-01-22] MEDS: Ketorolac 30 MG/ML SDV IVPUSH ONE (21:16)
== END 2024-01-22 22:25 | disposition home or self-care (01) ==
LOC: JD.ED 17:15
DX: J02.0 Streptococcal pharyngitis (principal); H66.93 Otitis media, unspecified, bilateral
CPT/HCPCS: 0241U; 36415; 80053; 81001; 83605; 83690; 85025; 86140; 87651; 96361; 96365; 96375; 99284; A9270; J0696; J1100; J1885; J2405; J3490; J7030; J7120; 99283

== ENCOUNTER 2024-02-21 09:47 | Emergency (ER) | payer SELFPAY ==
[2024-02-21] MEDS ORDERED: Ketorolac 30 MG/ML SDV IM ONE (11:05)
[2024-02-21] MEDS: Cephalexin 500 MG Cap PO ONE (12:54)
[2024-02-21] MEDS: Levofloxacin 750 MG Tab PO ONE (12:54)
[2024-02-21] MEDS: Ketorolac 15 MG/ML SDV IM ONE (12:56)
== END 2024-02-21 13:07 | disposition home or self-care (01) ==
LOC: JD.ED 09:47
DX: L03.116 Cellulitis of left lower limb (principal); Z86.16 Personal history of COVID-19; Z79.899 Other long term (current) drug therapy
CPT/HCPCS: 73620; 96372; 99283; A9270; J1885